=== PATIENT | male | born 1990 | race Caucasian/White ===

== ENCOUNTER 2017-02-25 20:32 | Observation (INO) | payer MEDICAID ==
[2017-02-25] MEDS ORDERED: Sodium Chloride 0.9% 2.5 ML Syringe FLUSH PRN ×2 (20:49→23:23)
[2017-02-25] MEDS ORDERED: Pantoprazole 40 MG Vial IVPUSH ONE (20:49)
[2017-02-25] MEDS ORDERED: HYDROmorphone 2 MG/ML Syringe IVPUSH ONE ×2 (20:49→22:49)
[2017-02-25] MEDS ORDERED: Sodium Chloride 0.9% 1,000 ML IV ONE ×2 (20:49→21:26)
[2017-02-25] MEDS ORDERED: Ondansetron 4 MG/2 ML SDV IVPUSH ONE (20:49)
[2017-02-25] MEDS ORDERED: Sodium Chloride 0.9% 10 ML Syringe FLUSH PRN ×2 (20:49→23:23)
--- NOTE | 2017-02-25 20:55 | EDM.PDOC ---
ED HPI GENERAL MEDICAL PROBLEM - General Chief Complaint: Abdominal Pain Stated Complaint: ABDOMINAL PAIN Time Seen by Provider: 02/25/17 20:41 - History of Present Illness INITIAL COMMENTS - FREE TEXT/NARRATIVE: HISTORY AND PHYSICAL: History of present illness: The patient is a 26-year-old male who denies any chronic medical problems but states that he was told that he had "IBS" by a physician but has never had endoscopy or colonoscopy and presents with complaints of mid epigastric abdominal pain that started at 1 PM this afternoon and has gradually increased. Initially it was a dull ache and it has increased in intensity over the last few hours it has worsened to the point where he is finding difficulty sitting still or standing upright. He has had nausea with this pain and he made himself vomit once but he has not vomited spontaneously. He had a normal bowel movement for him earlier today, 3 times without black or bloody stools, which is normal for him. The patient does state that when he eats certain foods he will get multiple episodes of loose stools but that is not new or different for him. He did not eat anything new or different this afternoon. He has not had fevers chest pain shortness of breath like pain and no urinary complaints. Patient denies any recent trauma or upper respiratory symptoms. Patient has no abdominal surgical history and again he has never been formally diagnosed with an IBS syndrome and has never been scoped before. The patient does admit that he drinks alcohol on a daily basis but does not binge drink and did not have any alcohol today. 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 He has no history of ulcers pancreas or liver issues that he is aware of. Patient denies drug use. He did not take anything over-the- counter for the discomfort other than some Advil. Patient also tells me that he does drink a lot of caffeinated products and he does not eat a very healthy diet due to his work schedule. Review of systems: As per history of present illness and below otherwise all systems reviewed and negative. Past medical history: As per history of present illness and as reviewed below otherwise noncontributory. Surgical history: As per history of present illness and as reviewed below otherwise noncontributory. Social history: No reported history of drug or alcohol abuse. Family history: As per history of present illness and as reviewed below otherwise noncontributory. Physical exam: Gen.: Well-developed well-nourished man who is vital signs are noted by me and looks uncomfortable in the room and prefers to keep his hips and knees flexed for comfort. He is nontoxic appearing HEENT: Atraumatic, normocephalic, sclerae are noninjected negative for conjunctival pallor or scleral icterus, mucous membranes tacky, throat clear, neck supple, nontender, trachea midline. Lungs: Clear to auscultation, breath sounds equal bilaterally, chest nontender. Heart: S1S2, regular rate and rhythm no overt murmurs Abdomen: Soft, nondistended, with hypoactive bowel sounds. There is mild tenderness on palpation in the epigastrium that does not localize right or left and does not extend beyond the umbilicus inferiorly. There is no lower abdominal tenderness. There is no rebound but there is some voluntary guarding but no involuntary guarding. Negative for masses or hepatosplenomegaly. Negative for costovertebral tenderness. Pelvis: Stable nontender. Genitourinary: Deferred. Rectal: Deferred. Extremities: Atraumatic, negative for cords or calf pain. Neurovascular unremarkable. Neuro: Awake, alert, oriented. Cranial nerves II through XII unremarkable. Cerebellum unremarkable. Motor and sensory unremarkable throughout. Exam nonfocal. Diagnostics: CBC CMP amylase lipase lactic acid INR abdominal x-rays CT of the abdomen and pelvis Therapeutics: IV fluids protonix Zofran Dilaudid cefoxitin 2252: Case was discussed with our surgeon Dr. Farooq as well as results were discussed with the patient. He is aware that he needs surgery and Dr. Farooq is coming in from home to perform the appendectomy. We will give a dose of cefoxitin and we will give him more pain medication after Dr. Farooq comes. Impression: Epigastric abdominal pain, acute appendicitis Definitive disposition and diagnosis as appropriate pending reevaluation and review of above. abdominal area Pain Score (Numeric/FACES): 10 - Related Data Allergies Allergy/AdvReac Type Severity Reaction Status Date / Time No Known Allergies Allergy Verified 02/25/17 20:46 Home Meds: Home Meds . [No Known Home Meds] 02/25/17 [History] ED ROS GENERAL - Review of Systems Review Of Systems: ROS reveals no pertinent complaints other than HPI. ED EXAM, GENERAL - Physical Exam Exam: See Below (See dictation) Course - Vital Signs Last Recorded V/S: Last Vital Signs Temp 36.6 C 02/25/17 21:18 Pulse 114 H 02/25/17 21:18 Resp 18 02/25/17 21:18 BP 167/91 H 02/25/17 21:18 Pulse Ox 96 02/25/17 21:18 - Orders/Labs/Meds Orders: Active Orders 24 hr Category Date Time Status Abdomen 2V AP Flat Upright [CR] Stat Exams 02/25/17 20:49 Taken Abdomen Pelvis w Cont [CT] Stat Exams 02/25/17 20:49 Taken Sodium Chloride 0.9% @ 150 MLS/HR (1,000ml) Med 02/25/17 23:00 Ordered Sodium Chloride 0.9% [Normal Saline] 1,000 ml IV ASDIRECTED Sodium Chloride 0.9% [Saline Flush] Med 02/25/17 20:49 Active 10 ml FLUSH ASDIRECTED PRN Sodium Chloride 0.9% [Saline Flush] Med 02/25/17 20:49 Active 2.5 ml FLUSH ASDIRECTED PRN cefOXitin [Mefoxin in Dextrose,Iso-Osm 2 GM/50 ML] 2 gm Med 02/25/17 22:50 Ordered Premix Bag 1 bag IV ONETIME Saline Lock Insert [OM.PC] Stat Oth 02/25/17 20:48 Ordered Medication Orders Sodium Chloride (Normal Saline) 1,000 mls @ 150 mls/hr IV ASDIRECTED OCTAVIO Sodium Chloride (Saline Flush) 10 ml FLUSH ASDIRECTED PRN PRN Reason: Keep Vein Open Sodium Chloride (Saline Flush) 2.5 ml FLUSH ASDIRECTED PRN PRN Reason: Keep Vein Open Labs: Laboratory Tests 02/25/17 02/25/17 02/25/17 Range/Units 20:50 20:55 20:55 WBC 21.58 H (4.0-11.0) K/uL RBC 5.22 (4.50-5.90) M/uL Hgb 15.0 (13.0-17.0) g/dL Hct 44.2 (38.0-50.0) % MCV 84.7 (80.0-98.0) fL MCH 28.7 (27.0-32.0) pg MCHC 33.9 (31.0-37.0) g/dL RDW Std Deviation 41.7 (28.0-62.0) fl RDW Coeff of Austyn 14 (11.0-15.0) % Plt Count 174 (150-400) K/uL MPV 10.40 (7.40-12.00) fL Add Manual Diff YES Neutrophils % (Manual) 87 H (48.0-80.0) % Band Neutrophils % 2 % Lymphocytes % (Manual) 6 L (16.0-40.0) % Monocytes % (Manual) 5 (0.0-15.0) % Nucleated RBC % 0.0 /100WBC Absolute Seg Neuts 18.8 Band Neutrophils # 0.4 Lymphocytes # (Manual) 1.3 Monocytes # (Manual) 1.1 Nucleated RBCs # 0 K/uL INR 0.98 (0.86-1.11) Lactate (0.20-2.00) mmol/L Sodium (136-146) mmol/L Potassium (3.5-5.1) mmol/L Chloride (98-110) mmol/L Carbon Dioxide (21-31) mmol/L BUN (6.0-23.0) mg/dL Creatinine (0.6-1.5) mg/dL Est Cr Clr Drug Dosing mL/min Estimated GFR (MDRD) ml/min Glucose (60-110) mg/dL Calcium (8.8-10.8) mg/dL Total Bilirubin (0.1-1.5) mg/dL AST (5-40) IU/L ALT (8-54) IU/L Alkaline Phosphatase (40-150) Total Protein (6.0-8.0) g/dL Albumin (3.5-5.0) g/dL Globulin (2.0-3.5) g/dL Albumin/Globulin Ratio (1.3-2.8) Amylase (10-90) U/L Lipase (7-80) U/L Urine Color YELLOW Urine Appearance CLEAR Urine pH 6.5 (5.0-8.0) Ur Specific [place] >= 1.030 (1.001-1.035) Urine Protein 100 (NEGATIVE) mg/dL Urine Glucose (UA) NEGATIVE (NEGATIVE) mg/dL Urine Ketones NEGATIVE (NEGATIVE) mg/dL Urine Occult Blood NEGATIVE (NEGATIVE) Urine Nitrite NEGATIVE (NEGATIVE) Urine Bilirubin NEGATIVE (NEGATIVE) Urine Urobilinogen 0.2 (<2.0) EU/dL Ur Leukocyte Esterase NEGATIVE (NEGATIVE) Urine RBC 0-1 (0-2/HPF) Urine WBC 0-2 (0-5/HPF) Ur Epithelial Cells RARE (NONE-FEW) Urine Bacteria RARE (NEGATIVE) Urine Mucus LIGHT (NONE-MOD) 02/25/17 02/25/17 Range/Units 20:55 20:55 WBC (4.0-11.0) K/uL RBC (4.50-5.90) M/uL Hgb (13.0-17.0) g/dL Hct (38.0-50.0) % MCV (80.0-98.0) fL MCH (27.0-32.0) pg MCHC (31.0-37.0) g/dL RDW Std Deviation (28.0-62.0) fl RDW Coeff of Austyn (11.0-15.0) % Plt Count (150-400) K/uL MPV (7.40-12.00) fL Add Manual Diff Neutrophils % (Manual) (48.0-80.0) % Band Neutrophils % % Lymphocytes % (Manual) (16.0-40.0) % Monocytes % (Manual) (0.0-15.0) % Nucleated RBC % /100WBC Absolute Seg Neuts Band Neutrophils # Lymphocytes # (Manual) Monocytes # (Manual) Nucleated RBCs # K/uL INR (0.86-1.11) Lactate 1.9 (0.20-2.00) mmol/L Sodium 141 (136-146) mmol/L Potassium 4.0 (3.5-5.1) mmol/L Chloride 102 (98-110) mmol/L Carbon Dioxide 26 (21-31) mmol/L BUN 14 (6.0-23.0) mg/dL Creatinine 0.9 (0.6-1.5) mg/dL Est Cr Clr Drug Dosing 151.36 mL/min Estimated GFR (MDRD) > 60.0 ml/min Glucose 111 H (60-110) mg/dL Calcium 9.8 (8.8-10.8) mg/dL Total Bilirubin 1.8 H (0.1-1.5) mg/dL AST 25 (5-40) IU/L ALT 28 (8-54) IU/L Alkaline Phosphatase 77 (40-150) Total Protein 8.3 H (6.0-8.0) g/dL Albumin 4.7 (3.5-5.0) g/dL Globulin 3.6 H (2.0-3.5) g/dL Albumin/Globulin Ratio 1.3 (1.3-2.8) Amylase 36 (10-90) U/L Lipase 11 (7-80) U/L Urine Color Urine Appearance Urine pH (5.0-8.0) Ur Specific [place] (1.001-1.035) Urine Protein (NEGATIVE) mg/dL Urine Glucose (UA) (NEGATIVE) mg/dL Urine Ketones (NEGATIVE) mg/dL Urine Occult Blood (NEGATIVE) Urine Nitrite (NEGATIVE) Urine Bilirubin (NEGATIVE) Urine Urobilinogen (<2.0) EU/dL Ur Leukocyte Esterase (NEGATIVE) Urine RBC (0-2/HPF) Urine WBC (0-5/HPF) Ur Epithelial Cells (NONE-FEW) Urine Bacteria (NEGATIVE) Urine Mucus (NONE-MOD) Meds: Medications Generic Name Dose Route Start Last Admin Trade Name Freq PRN Reason Stop Dose Admin Sodium Chloride 1,000 mls @ 150 mls/hr 02/25/17 23:00 Normal Saline IV ASDIRECTED OCTAVIO Sodium Chloride 10 ml 02/25/17 20:49 Saline Flush FLUSH ASDIRECTED PRN Keep Vein Open Sodium Chloride 2.5 ml 02/25/17 20:49 Saline Flush FLUSH ASDIRECTED PRN Keep Vein Open Discontinued Medications Generic Name Dose Route Start Last Admin Trade Name Freq PRN Reason Stop Dose Admin Hydromorphone HCl 1 mg 02/25/17 20:49 02/25/17 21:05 Dilaudid IVPUSH 02/25/17 20:50 1 mg ONETIME ONE Administration Hydromorphone HCl 1 mg 02/25/17 22:49 Dilaudid IVPUSH 02/25/17 22:50 ONETIME ONE Sodium Chloride 1,000 mls @ 999 mls/hr 02/25/17 20:49 02/25/17 20:58 Normal Saline IV 02/25/17 21:49 999 mls/hr STAT ONE Administration Sodium Chloride 1,000 mls @ 999 mls/hr 02/25/17 21:26 Normal Saline IV 02/25/17 22:26 STAT ONE Iopamidol 100 ml 02/25/17 22:29 02/25/17 22:30 Isovue Multipack-370 (76%) IVPUSH 02/25/17 22:30 100 ml ONETIME STA Administration Ondansetron HCl 4 mg 02/25/17 20:49 02/25/17 21:00 Zofran IVPUSH 02/25/17 20:50 4 mg ONETIME ONE Administration Pantoprazole Sodium 80 mg 02/25/17 20:49 02/25/17 21:10 Protonix Iv IVPUSH 02/25/17 20:50 80 mg .BOLUS ONE Administration Departure - Departure Time of Disposition: 22:54 Disposition: Refer to Observation Condition: Good Clinical Impression: Appendicitis Qualifiers: Appendicitis type: acute appendicitis Acute appendicitis type: unspecified acute appendicitis type Qualified Code(s): K35.80 - Unspecified acute appendicitis - Discharge Information Forms: ED Department Discharge - My Orders Last 24 Hours: My Active Orders 02/25/17 20:48 Saline Lock Insert [OM.PC] Stat 02/25/17 20:49 Abdomen 2V AP Flat Upright [CR] Stat Abdomen Pelvis w Cont [CT] Stat Sodium Chloride 0.9% [Saline Flush] 10 ml FLUSH ASDIRECTED PRN Sodium Chloride 0.9% [Saline Flush] 2.5 ml FLUSH ASDIRECTED PRN 02/25/17 22:50 cefOXitin [Mefoxin in Dextrose,Iso-Osm 2 GM/50 ML] 2 gm Premix Bag 1 bag IV ONETIME 02/25/17 23:00 Sodium Chloride 0.9% @ 150 MLS/HR (1,000ml) Sodium Chloride 0.9% [Normal Saline ] 1,000 ml IV ASDIRECTED - Assessment/Plan Last 24 Hours: My Active Orders 02/25/17 20:48 Saline Lock Insert [OM.PC] Stat 02/25/17 20:49 Abdomen 2V AP Flat Upright [CR] Stat Abdomen Pelvis w Cont [CT] Stat Sodium Chloride 0.9% [Saline Flush] 10 ml FLUSH ASDIRECTED PRN Sodium Chloride 0.9% [Saline Flush] 2.5 ml FLUSH ASDIRECTED PRN 02/25/17 22:50 cefOXitin [Mefoxin in Dextrose,Iso-Osm 2 GM/50 ML] 2 gm Premix Bag 1 bag IV ONETIME 02/25/17 23:00 Sodium Chloride 0.9% @ 150 MLS/HR (1,000ml) Sodium Chloride 0.9% [Normal Saline ] 1,000 ml IV ASDIRECTED
[2017-02-25 21:31] LABS: CHLORIDE,CL 102 mmol/L (98-110); SODIUM,NA 141 mmol/L (136-146)
[2017-02-25] MEDS ORDERED: Iopamidol 755 MG/ML 500 ML Multipack Bottle IVPUSH STA (22:29)
[2017-02-25] MEDS ORDERED: cefOXitin 2 GM in Premix Bag 1 BAG IV ONE (22:50)
[2017-02-25] MEDS ORDERED: Sodium Chloride 0.9% 1,000 ML IV SCH (23:00)
[2017-02-25] MEDS ORDERED: fentaNYL 100 MCG/2 ML SDV IVPUSH PRN (23:23)
--- NOTE | 2017-02-25 23:24 | PCM.HP ---
H&P History of Present Illness - General Date of Service: 02/25/17 Admit Problem/Dx: Admission Diagnosis/Problem Admission Diagnosis/Problem Appendicitis Source of Information: Patient History Limitations: Reports: No Limitations - History of Present Illness Initial Comments - Free Text/Narative: Patient is a 26-year-old gentleman who noticed the onset of epigastric pain about noon. He was able to eat. Denies any nausea or vomiting. Appetite is not particularly good right now. He finished work but the pain became progressively more intense until he presented to the emergency room where he was evaluated by Dr. Menon. Workup is as noted by her. He was found to have a significant leukocytosis. A subsequent CT scan of the abdomen reveals acute appendicitis without perforation. Surgical consultation was requested. Onset of Symptoms: Reports: Today Duration of Symptoms: Reports: Hour(s):, Getting Worse Location: Reports: Abdomen Quality: Reports: Pressure, Sharp Severity: Moderate Improves with: Reports: Rest Worsens with: Reports: Movement Context: Reports: Sick Contact Associated Symptoms: Reports: Loss of Appetite. Denies: Confusion, Chest Pain, Cough, Nausea/Vomiting abdominal area Pain Score (Numeric/FACES): 10 - Related Data Allergies/Adverse Reactions: Allergies Allergy/AdvReac Type Severity Reaction Status Date / Time No Known Allergies Allergy Verified 02/25/17 20:46 Home Medications: Home Meds . [No Known Home Meds] 02/25/17 [History] Past Medical History HEENT History: Reports: None Cardiovascular History: Reports: None Respiratory History: Reports: None Gastrointestinal History: Reports: None, Irritable Bowel Syndrome Genitourinary History: Reports: None Musculoskeletal History: Reports: None, Other (See Below) (Avascular necrosis of the left hip) Neurological History: Reports: None Psychiatric History: Reports: None Endocrine/Metabolic History: Reports: None Hematologic History: Reports: None Immunologic History: Reports: None Oncologic (Cancer) History: Reports: None Dermatologic History: Reports: None - Infectious Disease History Infectious Disease History: Reports: None - Past Surgical History Musculoskeletal Surgical History: Reports: Other (See Below) Other Musculoskeletal Surgeries/Procedures:: 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 Social & Family History - Family History Family Medical History: Noncontributory - Tobacco Use Smoking Status *Q: Never Smoker - Caffeine Use Caffeine Use: Reports: Coffee, Energy Drinks, Soda, Tea - Recreational Drug Use Recreational Drug Use: No H&P Review of Systems - Review of Systems: Review Of Systems: See Below General: Reports: Decreased Appetite. Denies: Fever, Chills, Malaise, Weakness , Night Sweats, Diaphoresis HEENT: Reports: No Symptoms Pulmonary: Reports: No Symptoms Cardiovascular: Reports: No Symptoms Gastrointestinal: Reports: Abdominal Pain, Anorexia, Decreased Appetite. Denies : Nausea, Vomiting Genitourinary: Denies: Dysuria, Frequency, Burning, Pain, Urgency Musculoskeletal: Reports: No Symptoms Skin: Reports: No Symptoms Psychiatric: Reports: No Symptoms Neurological: Reports: No Symptoms Hematologic/Lymphatic: Reports: No Symptoms Immunologic: Reports: No Symptoms Exam - Exam Exam: See Below - Vital Signs Vital Signs: Last Vital Signs Temp 98 F 02/25/17 22:54 Pulse 101 H 02/25/17 22:54 Resp 18 02/25/17 22:54 BP 156/79 H 02/25/17 22:54 Pulse Ox 97 02/25/17 22:54 Weight: 240 lb - Exam General: Alert, Oriented, Moderate Distress HEENT: Conjunctiva Clear, EACs Clear, EOMI, Hearing Intact, Mucosa Moist & [place] , Pupils Equal, Pupils Reactive Neck: Supple, Trachea Midline Lungs: Clear to Auscultation, Normal Respiratory Effort Cardiovascular: Regular Rate, Regular Rhythm, Normal S1, Normal S2, Tachycardia Abdomen: Soft, Rebound, Tenderness, Hypoactive Bowel Sounds, McBurney's Sign. No: Distention, Guarding, Rigidity, Rovsing's Sign (Male) Exam: No Hernia, Normal Inspection, Deferred Rectal (Males) Exam: Deferred Back Exam: Normal Inspection Extremities: Normal Inspection, Normal Pulses Skin: Warm, Dry, Intact Neurological: Cranial Nerves Intact Neuro Extensive - Mental Status: Alert, Oriented x3, Normal Mood/Affect Psychiatric: Alert, Normal Affect, Normal Mood - Patient Data Lab Results Last 24 hrs: Laboratory Results - last 24 hr 02/25/17 02/25/17 02/25/17 Range/Units 20:50 20:55 20:55 WBC 21.58 H (4.0-11.0) K/uL RBC 5.22 (4.50-5.90) M/uL Hgb 15.0 (13.0-17.0) g/dL Hct 44.2 (38.0-50.0) % MCV 84.7 (80.0-98.0) fL MCH 28.7 (27.0-32.0) pg MCHC 33.9 (31.0-37.0) g/dL RDW Std Deviation 41.7 (28.0-62.0) fl RDW Coeff of Austyn 14 (11.0-15.0) % Plt Count 174 (150-400) K/uL MPV 10.40 (7.40-12.00) fL Add Manual Diff YES Neutrophils % (Manual) 87 H (48.0-80.0) % Band Neutrophils % 2 % Lymphocytes % (Manual) 6 L (16.0-40.0) % Monocytes % (Manual) 5 (0.0-15.0) % Nucleated RBC % 0.0 /100WBC Absolute Seg Neuts 18.8 Band Neutrophils # 0.4 Lymphocytes # (Manual) 1.3 Monocytes # (Manual) 1.1 Nucleated RBCs # 0 K/uL INR 0.98 (0.86-1.11) Lactate (0.20-2.00) mmol/L Sodium (136-146) mmol/L Potassium (3.5-5.1) mmol/L Chloride (98-110) mmol/L Carbon Dioxide (21-31) mmol/L BUN (6.0-23.0) mg/dL Creatinine (0.6-1.5) mg/dL Est Cr Clr Drug Dosing mL/min Estimated GFR (MDRD) ml/min Glucose (60-110) mg/dL Calcium (8.8-10.8) mg/dL Total Bilirubin (0.1-1.5) mg/dL AST (5-40) IU/L ALT (8-54) IU/L Alkaline Phosphatase (40-150) Total Protein (6.0-8.0) g/dL Albumin (3.5-5.0) g/dL Globulin (2.0-3.5) g/dL Albumin/Globulin Ratio (1.3-2.8) Amylase (10-90) U/L Lipase (7-80) U/L Urine Color YELLOW Urine Appearance CLEAR Urine pH 6.5 (5.0-8.0) Ur Specific [place] >= 1.030 (1.001-1.035) Urine Protein 100 (NEGATIVE) mg/dL Urine Glucose (UA) NEGATIVE (NEGATIVE) mg/dL Urine Ketones NEGATIVE (NEGATIVE) mg/dL Urine Occult Blood NEGATIVE (NEGATIVE) Urine Nitrite NEGATIVE (NEGATIVE) Urine Bilirubin NEGATIVE (NEGATIVE) Urine Urobilinogen 0.2 (<2.0) EU/dL Ur Leukocyte Esterase NEGATIVE (NEGATIVE) Urine RBC 0-1 (0-2/HPF) Urine WBC 0-2 (0-5/HPF) Ur Epithelial Cells RARE (NONE-FEW) Urine Bacteria RARE (NEGATIVE) Urine Mucus LIGHT (NONE-MOD) 02/25/17 02/25/17 Range/Units 20:55 20:55 WBC (4.0-11.0) K/uL RBC (4.50-5.90) M/uL Hgb (13.0-17.0) g/dL Hct (38.0-50.0) % MCV (80.0-98.0) fL MCH (27.0-32.0) pg MCHC (31.0-37.0) g/dL RDW Std Deviation (28.0-62.0) fl RDW Coeff of Austyn (11.0-15.0) % Plt Count (150-400) K/uL MPV (7.40-12.00) fL Add Manual Diff Neutrophils % (Manual) (48.0-80.0) % Band Neutrophils % % Lymphocytes % (Manual) (16.0-40.0) % Monocytes % (Manual) (0.0-15.0) % Nucleated RBC % /100WBC Absolute Seg Neuts Band Neutrophils # Lymphocytes # (Manual) Monocytes # (Manual) Nucleated RBCs # K/uL INR (0.86-1.11) Lactate 1.9 (0.20-2.00) mmol/L Sodium 141 (136-146) mmol/L Potassium 4.0 (3.5-5.1) mmol/L Chloride 102 (98-110) mmol/L Carbon Dioxide 26 (21-31) mmol/L BUN 14 (6.0-23.0) mg/dL Creatinine 0.9 (0.6-1.5) mg/dL Est Cr Clr Drug Dosing 151.36 mL/min Estimated GFR (MDRD) > 60.0 ml/min Glucose 111 H (60-110) mg/dL Calcium 9.8 (8.8-10.8) mg/dL Total Bilirubin 1.8 H (0.1-1.5) mg/dL AST 25 (5-40) IU/L ALT 28 (8-54) IU/L Alkaline Phosphatase 77 (40-150) Total Protein 8.3 H (6.0-8.0) g/dL Albumin 4.7 (3.5-5.0) g/dL Globulin 3.6 H (2.0-3.5) g/dL Albumin/Globulin Ratio 1.3 (1.3-2.8) Amylase 36 (10-90) U/L Lipase 11 (7-80) U/L Urine Color Urine Appearance Urine pH (5.0-8.0) Ur Specific [place] (1.001-1.035) Urine Protein (NEGATIVE) mg/dL Urine Glucose (UA) (NEGATIVE) mg/dL Urine Ketones (NEGATIVE) mg/dL Urine Occult Blood (NEGATIVE) Urine Nitrite (NEGATIVE) Urine Bilirubin (NEGATIVE) Urine Urobilinogen (<2.0) EU/dL Ur Leukocyte Esterase (NEGATIVE) Urine RBC (0-2/HPF) Urine WBC (0-5/HPF) Ur Epithelial Cells (NONE-FEW) Urine Bacteria (NEGATIVE) Urine Mucus (NONE-MOD) Result Diagrams: 02/25/17 20:55 02/25/17 20:55 Imaging Impressions Last 24 hrs: CT scan of the abdomen has been done. The radiology report shows "dilated fluid -filled appendix measuring up to 14 mm circumferential wall enhancement and thickening and periappendiceal stranding. Appendicolith near the base of the appendix. No evidence of perforation or abscess formation." *Q Meaningful Use (ADM) - VTE *Q VTE Criteria *Q: - Stroke *Q Stroke Criteria *Q: - AMI *Q AMI Criteria *Q: - Problem List (1) Appendicitis SNOMED Code(s): 14696785 ICD Code: K37 - UNSPECIFIED APPENDICITIS Status: Acute Current Visit: Yes Qualifiers: Appendicitis type: acute appendicitis Acute appendicitis type: with localized peritonitis Qualified Code(s): K35.3 - Acute appendicitis with localized peritonitis Problem List Initiated/Reviewed/Updated: Yes Orders Last 24hrs: Active Orders 24 hr Category Date Time Status Patient Status [ADT] Stat ADT 02/25/17 22:54 Active Antiembolic Devices [RC] PER UNIT ROUTINE Care 02/25/17 23:17 Ordered Aragon Catheter Insertion [Insert Urinary Catheter] [OM. Care 02/25/17 23:30 Ordered PC] Q24H Oxygen Therapy [RC] PRN Care 02/25/17 23:16 Ordered Pulse Oximetry [RC] INTERMITTENT Care 02/25/17 23:16 Ordered Skin Preparation [RC] .PREOP Care 02/25/17 23:16 Ordered Urinary Catheter Assessment [RC] ASDIRECTED Care 02/25/17 23:16 Ordered Urinary Catheter Assessment [RC] ASDIRECTED Care 02/25/17 23:17 Ordered Vital Signs [RC] PER UNIT ROUTINE Care 02/25/17 23:16 Ordered Nothing Per Oral Diet [DIET] Diet 02/25/17 Dinner Ordered Abdomen 2V AP Flat Upright [CR] Stat Exams 02/25/17 20:49 Taken Abdomen Pelvis w Cont [CT] Stat Exams 02/25/17 20:49 Taken Lactated Ringers [Ringers, Lactated] 1,000 ml Med 02/25/17 23:30 Ordered IV ASDIRECTED Sodium Chloride 0.9% [Normal Saline] 1,000 ml Med 02/25/17 23:00 Active IV ASDIRECTED Sodium Chloride 0.9% [Saline Flush] Med 02/25/17 20:49 Active 10 ml FLUSH ASDIRECTED PRN Sodium Chloride 0.9% [Saline Flush] Med 02/25/17 20:49 Active 2.5 ml FLUSH ASDIRECTED PRN cefOXitin [Mefoxin in Dextrose,Iso-Osm 2 GM/50 ML] 2 gm Med 02/25/17 22:50 Active Premix Bag 1 bag IV ONETIME Antiembolic Hose [OM.PC] PER UNIT ROUTINE Oth 02/25/17 06:00 Ordered Antiembolic Hose [OM.PC] PER UNIT ROUTINE Oth 02/26/17 06:00 Ordered Saline Lock Insert [OM.PC] Stat Oth 02/25/17 20:48 Ordered Sequential Compression Device [OM.PC] Routine Oth 02/25/17 23:16 Ordered Resuscitation Status Routine Resus Stat 02/25/17 23:16 Ordered Medication Orders Sodium Chloride (Normal Saline) 1,000 mls @ 150 mls/hr IV ASDIRECTED OCTAVIO Last Admin: 02/25/17 23:05 Dose: 150 mls/hr Cefoxitin Sodium 2 gm/ Premix 50 mls @ 100 mls/hr IV ONETIME ONE Stop: 02/25/17 23:19 Last Admin: 02/25/17 23:07 Dose: 100 mls/hr Sodium Chloride (Saline Flush) 10 ml FLUSH ASDIRECTED PRN PRN Reason: Keep Vein Open Sodium Chloride (Saline Flush) 2.5 ml FLUSH ASDIRECTED PRN PRN Reason: Keep Vein Open Assessment/Plan Comment:: White count is almost 22,000 with a marked left shift. Examination is consistent with a diagnosis of acute appendicitis as referenced by CT scan. Laparoscopic appendectomy, possible open appendectomy. Both operative procedures, along with the risks, including, but not limited to, bleeding, infection, pneumonia, deep venous thrombosis, pulmonary emboli, myocardial infarction, and adjacent organ injury have been reviewed with the patient who voices understanding, offers no questions and agrees to proceed.
--- NOTE | 2017-02-25 23:28 | PCM.PREANE ---
Preanesthetic Assessment - Anesthesia/Transfusion/Family Hx Anesthesia History: No Prior Anesthesia - Review of Systems General: No Symptoms Pulmonary: No Symptoms Cardiovascular: No Symptoms Gastrointestinal: No symptoms Neurological: No Symptoms Other: Reports: None - Physical Assessment NPO Status Date: 02/25/17 NPO Status Time: 21:00 O2 Sat by Pulse Oximetry: 97 Respiratory Rate: 18 Vital Signs: Last Vital Signs Temp 98 F 02/25/17 22:54 Pulse 101 H 02/25/17 22:54 Resp 18 02/25/17 22:54 BP 156/79 H 02/25/17 22:54 Pulse Ox 97 02/25/17 22:54 Height: 6 ft 4 in Weight: 108.862 kg ASA Class: 2E Mental Status: Alert & Oriented x3 Airway Class: Mallampati = 2 Dentition: Reports: Normal Dentition Thyro-Mental Finger Breadths: 3 Mouth Opening Finger Breadths: 3 ROM/Head Extension: Full Lungs: Clear to auscultation, Normal respiratory effort Cardiovascular: Regular Rate, Regular Rhythm - Lab Values: Laboratory Last Values WBC 21.58 K/uL (4.0-11.0) H 02/25/17 20:55 RBC 5.22 M/uL (4.50-5.90) 02/25/17 20:55 Hgb 15.0 g/dL (13.0-17.0) 02/25/17 20:55 Hct 44.2 % (38.0-50.0) 02/25/17 20:55 MCV 84.7 fL (80.0-98.0) 02/25/17 20:55 MCH 28.7 pg (27.0-32.0) 02/25/17 20:55 MCHC 33.9 g/dL (31.0-37.0) 02/25/17 20:55 RDW Std Deviation 41.7 fl (28.0-62.0) 02/25/17 20:55 RDW Coeff of Austyn 14 % (11.0-15.0) 02/25/17 20:55 Plt Count 174 K/uL (150-400) 02/25/17 20:55 MPV 10.40 fL (7.40-12.00) 02/25/17 20:55 Add Manual Diff YES 02/25/17 20:55 Neutrophils % (Manual) 87 % (48.0-80.0) H 02/25/17 20:55 Band Neutrophils % 2 % 02/25/17 20:55 Lymphocytes % (Manual) 6 % (16.0-40.0) L 02/25/17 20:55 Monocytes % (Manual) 5 % (0.0-15.0) 02/25/17 20:55 Nucleated RBC % 0.0 /100WBC 02/25/17 20:55 Absolute Seg Neuts 18.8 02/25/17 20:55 Band Neutrophils # 0.4 02/25/17 20:55 Lymphocytes # (Manual) 1.3 02/25/17 20:55 Monocytes # (Manual) 1.1 02/25/17 20:55 Nucleated RBCs # 0 K/uL 02/25/17 20:55 INR 0.98 (0.86-1.11) 02/25/17 20:55 Lactate 1.9 mmol/L (0.20-2.00) 02/25/17 20:55 Sodium 141 mmol/L (136-146) 02/25/17 20:55 Potassium 4.0 mmol/L (3.5-5.1) 02/25/17 20:55 Chloride 102 mmol/L (98-110) 02/25/17 20:55 Carbon Dioxide 26 mmol/L (21-31) 02/25/17 20:55 BUN 14 mg/dL (6.0-23.0) 02/25/17 20:55 Creatinine 0.9 mg/dL (0.6-1.5) 02/25/17 20:55 Est Cr Clr Drug Dosing 151.36 mL/min 02/25/17 20:55 Estimated GFR (MDRD) > 60.0 ml/min 02/25/17 20:55 Glucose 111 mg/dL (60-110) H 02/25/17 20:55 Calcium 9.8 mg/dL (8.8-10.8) 02/25/17 20:55 Total Bilirubin 1.8 mg/dL (0.1-1.5) H 02/25/17 20:55 AST 25 IU/L (5-40) 02/25/17 20:55 ALT 28 IU/L (8-54) 02/25/17 20:55 Alkaline Phosphatase 77 (40-150) 02/25/17 20:55 Total Protein 8.3 g/dL (6.0-8.0) H 02/25/17 20:55 Albumin 4.7 g/dL (3.5-5.0) 02/25/17 20:55 Globulin 3.6 g/dL (2.0-3.5) H 02/25/17 20:55 Albumin/Globulin Ratio 1.3 (1.3-2.8) 02/25/17 20:55 Amylase 36 U/L (10-90) 02/25/17 20:55 Lipase 11 U/L (7-80) 02/25/17 20:55 Urine Color YELLOW 02/25/17 20:50 Urine Appearance CLEAR 02/25/17 20:50 Urine pH 6.5 (5.0-8.0) 02/25/17 20:50 Ur Specific Umpire >= 1.030 (1.001-1.035) 02/25/17 20:50 Urine Protein 100 mg/dL (NEGATIVE) 02/25/17 20:50 Urine Glucose (UA) NEGATIVE mg/dL (NEGATIVE) 02/25/17 20:50 Urine Ketones NEGATIVE mg/dL (NEGATIVE) 02/25/17 20:50 Urine Occult Blood NEGATIVE (NEGATIVE) 02/25/17 20:50 Urine Nitrite NEGATIVE (NEGATIVE) 02/25/17 20:50 Urine Bilirubin NEGATIVE (NEGATIVE) 02/25/17 20:50 Urine Urobilinogen 0.2 EU/dL (<2.0) 02/25/17 20:50 Ur Leukocyte Esterase NEGATIVE (NEGATIVE) 02/25/17 20:50 Urine RBC 0-1 (0-2/HPF) 02/25/17 20:50 Urine WBC 0-2 (0-5/HPF) 02/25/17 20:50 Ur Epithelial Cells RARE (NONE-FEW) 02/25/17 20:50 Urine Bacteria RARE (NEGATIVE) 02/25/17 20:50 Urine Mucus LIGHT (NONE-MOD) 02/25/17 20:50 - Allergies Allergies/Adverse Reactions: Allergies Allergy/AdvReac Type Severity Reaction Status Date / Time No Known Allergies Allergy Verified 02/25/17 20:46 - Acknowledgements Anesthesia Type Planned: General Anesthesia Pt an Appropriate Candidate for the Planned Anesthesia: Yes Alternatives and Risks of Anesthesia Discussed w Pt/Guardian: Yes Pt/Guardian Understands and Agrees with Anesthesia Plan: Yes PreAnesthesia Questionnaire HEENT History: Reports: None Cardiovascular History: Reports: None Respiratory History: Reports: None Gastrointestinal History: Reports: Irritable Bowel Syndrome Genitourinary History: Reports: None Musculoskeletal History: Reports: Other (See Below) (Avascular necrosis of the left hip) Neurological History: Reports: None Psychiatric History: Reports: None Endocrine/Metabolic History: Reports: None Hematologic History: Reports: None Immunologic History: Reports: None Oncologic (Cancer) History: Reports: None Dermatologic History: Reports: None - Infectious Disease History Infectious Disease History: Reports: None - Past Surgical History Musculoskeletal Surgical History: Reports: Other (See Below) Other Musculoskeletal Surgeries/Procedures:: 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 - SUBSTANCE USE Smoking Status *Q: Never Smoker Recreational Drug Use History: Yes Recreational Drug Last Use: 1 year ago per patient - HOME MEDS Home Medications: Home Meds . [No Known Home Meds] 02/25/17 [History] - CURRENT (IN HOUSE) MEDS Current Meds: Current Medications Sodium Chloride (Normal Saline) 1,000 mls @ 150 mls/hr IV ASDIRECTED OCTAVIO Last Admin: 02/25/17 23:05 Dose: 150 mls/hr Lactated Ringer's (Ringers, Lactated) 1,000 mls @ 150 mls/hr IV ASDIRECTED OCTAVIO Sodium Chloride (Saline Flush) 10 ml FLUSH ASDIRECTED PRN PRN Reason: Keep Vein Open Sodium Chloride (Saline Flush) 2.5 ml FLUSH ASDIRECTED PRN PRN Reason: Keep Vein Open Discontinued Medications Hydromorphone HCl (Dilaudid) 1 mg IVPUSH ONETIME ONE Stop: 02/25/17 20:50 Last Admin: 02/25/17 21:05 Dose: 1 mg Hydromorphone HCl (Dilaudid) 1 mg IVPUSH ONETIME ONE Stop: 02/25/17 22:50 Last Admin: 02/25/17 23:14 Dose: 1 mg Sodium Chloride (Normal Saline) 1,000 mls @ 999 mls/hr IV STAT ONE Stop: 02/25/17 21:49 Last Admin: 02/25/17 20:58 Dose: 999 mls/hr Sodium Chloride (Normal Saline) 1,000 mls @ 999 mls/hr IV STAT ONE Stop: 02/25/17 22:26 Last Admin: 02/25/17 21:45 Dose: 999 mls/hr Cefoxitin Sodium 2 gm/ Premix 50 mls @ 100 mls/hr IV ONETIME ONE Stop: 02/25/17 23:19 Last Admin: 02/25/17 23:07 Dose: 100 mls/hr Iopamidol (Isovue Multipack-370 (76%)) 100 ml IVPUSH ONETIME STA Stop: 02/25/17 22:30 Last Admin: 02/25/17 22:30 Dose: 100 ml Ondansetron HCl (Zofran) 4 mg IVPUSH ONETIME ONE Stop: 02/25/17 20:50 Last Admin: 02/25/17 21:00 Dose: 4 mg Pantoprazole Sodium (Protonix Iv) 80 mg IVPUSH .BOLUS ONE Stop: 02/25/17 20:50 Last Admin: 02/25/17 21:10 Dose: 80 mg
[2017-02-25] MEDS ORDERED: Lactated Ringers 1,000 ML IV SCH (23:30)
[2017-02-25] MEDS ORDERED: Midazolam 1 MG/ML 2 ML SDV IVPUSH ONE (23:31)
[2017-02-25] MEDS ORDERED: fentaNYL 250 MCG/5 ML SDV ONE (23:50)
[2017-02-25] MEDS ORDERED: Ondansetron 4 MG/2 ML SDV ONE (23:50)
[2017-02-25] MEDS ORDERED: Midazolam 1 MG/ML 2 ML SDV ONE (23:50)
[2017-02-25] MEDS ORDERED: Propofol 200 MG/20 ML SDV ONE (23:50)
[2017-02-25] MEDS ORDERED: Lidocaine 2% 5 ML SDV ONE (23:50)
[2017-02-25] MEDS ORDERED: Succinylcholine/Normal Saline 200 MG/10 ML Syringe ONE (23:50)
[2017-02-25] MEDS ORDERED: Bupivacaine 0.5% 30 ML SDV ONE (23:55)
[2017-02-25] MEDS ORDERED: ceFAZolin 1 GM Vial ONE (23:55)
[2017-02-26] MEDS ORDERED: Labetalol 5 MG/ML 5 ML Syringe ONE (00:23)
[2017-02-26] MEDS ORDERED: ePHEDrine 50 MG/ML SDV ONE (00:37)
[2017-02-26] MEDS ORDERED: Phenylephrine/Normal Saline 100 MCG/ML 10 ML Syringe ONE (00:38)
[2017-02-26] MEDS ORDERED: HYDROmorphone 2 MG/ML Syringe ONE (00:43)
--- NOTE | 2017-02-26 01:39 | PCM.OPNOTE ---
- General Post-Op/Procedure Note Date of Surgery/Procedure: 02/26/17 Operative Procedure(s): Laparoscopic appendectomy Pre Op Diagnosis: Acute abdomen, appendicitis by CT Post-Op Diagnosis: Acute nonruptured retrocecal appendicitis (29861) Anesthesia Technique: General ET Tube (ASA IIE) Primary Surgeon: Anthony Farooq Fluid Replacement, Intraop: 2,500 Output, Urine Amount: 100 EBL in mLs: 10 Condition: Good Free Text/Narrative:: Dictation [id number]
[2017-02-26] MEDS ORDERED: cefOXitin 1 GM in Premix Bag 1 BAG IV SCH ×2 (01:45→06:00)
--- NOTE | 2017-02-26 01:46 | PCM.POSTAN ---
POST ANESTHESIA ASSESSMENT - MENTAL STATUS Mental Status: alert, oriented - RESPIRATORY Respiratory Status: respiratory rate WNL, airway patent, O2 saturation stable - CARDIOVASCULAR CV Status: pulse rate WNL, blood pressure stable - GASTROINTESTINAL GI Status: no symptoms - POST OP HYDRATION Hydration Status: adequate & stable
[2017-02-26] MEDS: Lactated Ringers 1,000 ML IV SCH ×2 (02:10→07:28)
[2017-02-26] MEDS: Acetaminophen/HYDROcodone 325-5 MG Tab PO PRN ×2 (03:21→08:12)
[2017-02-26] MEDS: Morphine 10 MG/ML Syringe IVPUSH PRN ×2 (05:05→07:26)
--- NOTE | 2017-02-26 05:20 | OR ---
SURGEON: Anthony Farooq M.D. DATE OF PROCEDURE: 02/26/2017 OPERATION PERFORMED: Laparoscopic appendectomy. ANESTHESIA: General endotracheal. ASA CLASSIFICATION: IIE. PREOPERATIVE DIAGNOSIS: Right lower quadrant pain, acute appendicitis by CT scan. POSTOPERATIVE DIAGNOSIS: Acute nonruptured retrocecal appendicitis. DESCRIPTION OF PROCEDURE: The patient was taken to the operating room placed on the operating table in the supine position. Time-out was called for appropriate identification of the patient and procedure. Thigh-high TEDs and sequential compression boots were placed. Following satisfactory attainment of general endotracheal anesthesia, Aragon catheter was paced in the patient's urinary bladder. The abdomen was then prepped with DuraPrep solution and sterile drapes were applied. 3-minute wait was accomplished. The skin just above the umbilicus was infiltrated with 0.5% Marcaine solution. The skin incision was made and deepened into the subcutaneous tissue obtaining hemostasis with the use of electrocautery. The Veress needle was introduced into the peritoneal cavity. Saline drop test was positive. Carbon dioxide pneumoperitoneum was established with the relief set at 13 cm of water. Once satisfactory pneumoperitoneum was established, 5-mm camera and port were placed through the supraumbilical incision. Under camera vision, 12-mm suprapubic port was placed infiltrating the skin with 0.5% Marcaine solution. The patient was now positioned with his head down and rolled to the left. Under camera vision, 5-mm left lower quadrant port was placed. Again, the skin was preemptively infiltrated with 0.5% Marcaine solution. With all trocars in place, the cecum was identified and we were able to trace the appendix which was lying in a retrocecal position and well walled off by the omentum. I was able to dissect the appendix out, and then using the Harmonic scalpel, the mesoappendix was taken down. Once the mesoappendix was taken down, the appendix was stapled using an Endo-VEE with a blue load. The appendix was promptly placed in an Endopouch. The right lower quadrant was inspected for hemostasis. No bleeding was noted. The right lower quadrant was then irrigated with several 100 mL of 1% Ancef solution. This fluid was all aspirated. The patient was now returned to a neutral position. The Endopouch containing appendix was removed through the 12-mm suprapubic port removing the port simultaneously. Under camera vision, the 5-mm left lower quadrant port was removed. The carbon dioxide was allowed to escape into the atmosphere and the supraumbilical camera and port were removed. The wounds were inspected for hemostasis and small bleeding sites were electrocoagulated. The suprapubic and supraumbilical incisions were closed in 2 layers approximating the subcutaneous tissue with 3-0 Polysorb and the skin with subcuticular 4-0 Monocryl. The left lower quadrant port was closed with interrupted subcuticular 4-0 Monocryl. All incisions were Steri-Stripped and dressed with sterile Tegaderm pads. Sponge, needle, and instrument counts were all correct. The patient tolerated the procedure well. The Aragon catheter was removed prior to emergence from anesthesia. Following emergence from anesthesia and extubation, the patient was taken to recovery room in satisfactory condition. NADJA CONTRERAS /[id number]
[2017-02-26 07:36] VITALS: BP 148/87
--- NOTE | 2017-02-26 08:20 | PCM.SURGPN ---
- General Info Date of Service: 02/26/17 POD#: 1 Post-Op Diagnosis: Acute nonruptured retrocecal appendicitis Functional Status: Reports: pain controlled, tolerating diet, ambulating, urinating - Review of Systems General: Reports: Appetite. Denies: Fever, Weakness, Malaise, Chills HEENT: Reports: no symptoms Pulmonary: Denies: shortness of breath, pleuritic chest pain, cough Cardiovascular: Reports: No Symptoms Gastrointestinal: Reports: Abdominal pain (Still RLQ but less than preop). Denies: Decreased appetite, Diarrhea, Difficulty swallowing, Nausea, Vomiting Genitourinary: Denies: dysuria, frequency, burning, pain, urgency Musculoskeletal: Reports: no symptoms Skin: Reports: no symptoms Neurological: Reports: No Symptoms Psychiatric: Reports: no symptoms - Patient Data Vitals - most recent: Last Vital Signs Temp 97.1 F 02/26/17 07:35 Pulse 89 02/26/17 07:35 Resp 20 02/26/17 07:35 BP 148/87 H 02/26/17 07:35 Pulse Ox 97 02/26/17 07:35 Weight - most recent: 240 lb I&O - last 24 hours: Intake & Output 02/25/17 02/26/17 02/26/17 19:59 03:59 11:59 Intake Total 4700 690 Output Total 100 200 Balance 4600 490 Med Orders - Current: Current Medications Hydrocodone Bitart/Acetaminophen ([place] 325-5 Mg) 1 - 2 tab PO Q4H PRN PRN Reason: Pain (moderate 4-6) Last Admin: 02/26/17 08:12 Dose: 2 tab Lactated Ringer's (Ringers, Lactated) 1,000 mls @ 150 mls/hr IV ASDIRECTED OCTAVIO Last Admin: 02/26/17 07:28 Dose: 150 mls/hr Cefoxitin Sodium 1 gm/ Premix 50 mls @ 100 mls/hr IV Q8H [facility] Stop: 02/26/17 14:29 Last Admin: 02/26/17 05:46 Dose: 100 mls/hr Morphine Sulfate (Morphine) 0 mg IVPUSH Q1H PRN PRN Reason: Pain (severe 7-10) Last Admin: 02/26/17 07:26 Dose: 2 mg Sodium Chloride (Saline Flush) 10 ml FLUSH ASDIRECTED PRN PRN Reason: Keep Vein Open Sodium Chloride (Saline Flush) 2.5 ml FLUSH ASDIRECTED PRN PRN Reason: Keep Vein Open Sodium Chloride (Saline Flush) 10 ml FLUSH ASDIRECTED PRN PRN Reason: Keep Vein Open Sodium Chloride (Saline Flush) 2.5 ml FLUSH ASDIRECTED PRN PRN Reason: Keep Vein Open Discontinued Medications Bupivacaine HCl (Marcaine 0.5%) Confirm Administered Dose 30 ml .ROUTE .STK-MED ONE Stop: 02/25/17 23:56 Cefazolin Sodium (Ancef) Confirm Administered Dose 1 gm .ROUTE .STK-MED ONE Stop: 02/25/17 23:56 Ephedrine Sulfate (Ephedrine Sulfate) Confirm Administered Dose 50 mg .ROUTE .STK-MED ONE Stop: 02/26/17 00:38 Fentanyl (Sublimaze) 50 mcg IVPUSH Q5M PRN PRN Reason: Pain (severe 7-10) Stop: 02/26/17 23:23 Fentanyl (Sublimaze) Confirm Administered Dose 250 mcg .ROUTE .STK-MED ONE Stop: 02/25/17 23:51 Hydromorphone HCl (Dilaudid) 1 mg IVPUSH ONETIME ONE Stop: 02/25/17 20:50 Last Admin: 02/25/17 21:05 Dose: 1 mg Hydromorphone HCl (Dilaudid) 1 mg IVPUSH ONETIME ONE Stop: 02/25/17 22:50 Last Admin: 02/25/17 23:14 Dose: 1 mg Hydromorphone HCl (Dilaudid) Confirm Administered Dose 2 mg .ROUTE .STK-MED ONE Stop: 02/26/17 00:44 Sodium Chloride (Normal Saline) 1,000 mls @ 999 mls/hr IV STAT ONE Stop: 02/25/17 21:49 Last Admin: 02/25/17 20:58 Dose: 999 mls/hr Sodium Chloride (Normal Saline) 1,000 mls @ 999 mls/hr IV STAT ONE Stop: 02/25/17 22:26 Last Admin: 02/25/17 21:45 Dose: 999 mls/hr Sodium Chloride (Normal Saline) 1,000 mls @ 150 mls/hr IV ASDIRECTED [facility] Last Admin: 02/25/17 23:05 Dose: 150 mls/hr Cefoxitin Sodium 2 gm/ Premix 50 mls @ 100 mls/hr IV ONETIME ONE Stop: 02/25/17 23:19 Last Admin: 02/25/17 23:07 Dose: 100 mls/hr Lactated Ringer's (Ringers, Lactated) 1,000 mls @ 150 mls/hr IV ASDIRECTED OCTAVIO Cefoxitin Sodium 1 gm/ Premix 50 mls @ 100 mls/hr IV Q8H [facility] Stop: 02/26/17 10:14 Last Admin: 02/26/17 03:10 Dose: Not Given Iopamidol (Isovue Multipack-370 (76%)) 100 ml IVPUSH ONETIME STA Stop: 02/25/17 22:30 Last Admin: 02/25/17 22:30 Dose: 100 ml Labetalol HCl (Normodyne) Confirm Administered Dose 25 mg .ROUTE .STK-MED ONE Stop: 02/26/17 00:24 Lidocaine (Xylocaine-Mpf 2%) Confirm Administered Dose 5 ml .ROUTE .STK-MED ONE Stop: 02/25/17 23:51 Midazolam HCl (Versed 1 Mg/Ml) 2 mg IVPUSH ONETIME ONE Stop: 02/25/17 23:32 Last Admin: 02/26/17 00:06 Dose: 2 mg Midazolam HCl (Versed 1 Mg/Ml) Confirm Administered Dose 2 mg .ROUTE .STK-MED ONE Stop: 02/25/17 23:51 Ondansetron HCl (Zofran) 4 mg IVPUSH ONETIME ONE Stop: 02/25/17 20:50 Last Admin: 02/25/17 21:00 Dose: 4 mg Ondansetron HCl (Zofran) Confirm Administered Dose 4 mg .ROUTE .STK-MED ONE Stop: 02/25/17 23:51 Pantoprazole Sodium (Protonix Iv) 80 mg IVPUSH .BOLUS ONE Stop: 02/25/17 20:50 Last Admin: 02/25/17 21:10 Dose: 80 mg Phenylephrine HCl (Phenylephrine In Ns 100 Mcg/Ml) Confirm Administered Dose 1 mg .ROUTE .STK-MED ONE Stop: 02/26/17 00:39 Propofol (Diprivan 20 Ml) Confirm Administered Dose 200 mg .ROUTE .STK-MED ONE Stop: 02/25/17 23:51 Succinylcholine Chloride (Succinylcholine In Ns Pf) Confirm Administered Dose 200 mg .ROUTE .STK-MED ONE Stop: 02/25/17 23:51 - Exam Wound/Incisions: dressing dry and intact General: alert, oriented, cooperative, mild distress HEENT: Pupils equal, Pupils reactive, EOMI. No: Scleral icterus Neck: supple Lungs: Clear to auscultation, Normal respiratory effort Cardiovascular: Regular Rate, Regular Rhythm, Tachycardia Abdomen: bowel sounds present, soft, no distension, tenderness. No: rigidity, rebound, guarding Extremities: no edema, normal pulses Skin: warm, dry, intact Neurological: no new focal deficit Psy/Mental Status: alert, normal affect, normal mood - Problem List & Annotations (1) Appendicitis SNOMED Code(s): 60332622 Code(s): K37 - UNSPECIFIED APPENDICITIS Status: Acute Current Visit: Yes Qualifiers: Appendicitis type: acute appendicitis Acute appendicitis type: with localized peritonitis Qualified Code(s): K35.3 - Acute appendicitis with localized peritonitis - Problem List Review Problem List Initiated/Reviewed/Updated: Yes - My Orders Last 24 Hours: Active Orders 24 hr Category Date Time Status Soft Diet [DIET] Diet 02/26/17 Lunch Active cefOXitin [Mefoxin in Dextrose,Iso-Osm 1 GM/50 ML] 1 gm Med 02/26/17 06:00 Active Premix Bag 1 bag IV Q8H Medication Orders Hydrocodone Bitart/Acetaminophen ([place] 325-5 Mg) 1 - 2 tab PO Q4H PRN PRN Reason: Pain (moderate 4-6) Last Admin: 02/26/17 08:12 Dose: 2 tab Admin: 02/26/17 03:21 Dose: 2 tab Lactated Ringer's (Ringers, Lactated) 1,000 mls @ 150 mls/hr IV ASDIRECTED OCTAVIO Last Admin: 02/26/17 07:28 Dose: 150 mls/hr Infusion: 02/26/17 07:28 Dose: 150 mls/hr Admin: 02/26/17 02:10 Dose: 150 mls/hr Cefoxitin Sodium 1 gm/ Premix 50 mls @ 100 mls/hr IV Q8H [facility] Stop: 02/26/17 14:29 Last Admin: 02/26/17 05:46 Dose: 100 mls/hr Morphine Sulfate (Morphine) 0 mg IVPUSH Q1H PRN PRN Reason: Pain (severe 7-10) Last Admin: 02/26/17 07:26 Dose: 2 mg Admin: 02/26/17 05:05 Dose: 2 mg Sodium Chloride (Saline Flush) 10 ml FLUSH ASDIRECTED PRN PRN Reason: Keep Vein Open Sodium Chloride (Saline Flush) 2.5 ml FLUSH ASDIRECTED PRN PRN Reason: Keep Vein Open Sodium Chloride (Saline Flush) 10 ml FLUSH ASDIRECTED PRN PRN Reason: Keep Vein Open Sodium Chloride (Saline Flush) 2.5 ml FLUSH ASDIRECTED PRN PRN Reason: Keep Vein Open - Assessment Assessment (Free Text/Narrative):: Patient is feeling much better. Pain controlled. Still c/o RLQ pain but much less intense. No shoulder pain. Appetite slowly returning. Overall, patient is improved. Wants to go home. - Plan Plan (Free Text/Narrative):: Discharge. [place] 5/325 1 po q6h prn pain. #20 May return to light duty on 03/04. Not to lift more than 25 lbs. for 6 weeks. Clinic visit 10 days.
--- NOTE | 2017-02-26 10:13 | PCM48HPAN ---
Post Anesthesia Note - EVALUATION WITHIN 48HRS OF ANESTHETIC Vital Signs in Normal Range: Yes Patient Participated in Evaluation: Yes Respiratory Function Stable: Yes Airway Patent: Yes Cardiovascular Function Stable: Yes Hydration Status Stable: Yes Pain Control Satisfactory: Yes Nausea and Vomiting Control Satisfactory: Yes Mental Status Recovered: Yes - COMMENTS/OBSERVATIONS Free Text/Narrative:: Patient was discharged early this morning without notice to us that he would be before we were available to see him for Post Anesthesia visit. Charting was reviewed and this young man was discharged in good condition.
--- NOTE | 2017-02-26 13:12 | CR ---
EXAM DATE: 02/26/17 PATIENT'S AGE: 26 Patient: LLOYD KULKARNI Facility: [place], [place] Site . Site : 1990 Study: XRay Abdomen [id number]/17/2017 9:45:04 PM Ordering Physician: Lynsey Shelton Final Report: INDICATION: SEVERE ABDOMINAL PAIN TECHNIQUE: Abdomen 5 view COMPARISON: None FINDINGS: Bowel: Nonobstructive bowel gas pattern. Soft tissues: 4 circular densities within the pelvis which were secondary to overlying clothing and not apparent on the repeat radiograph. Multiple punctate radiopaque densities within the left quadrant which appear to be overlying artifact rather than a true finding. No sign of soft tissue mass. No suspicious calcifications. Bones: Moderate degenerative changes of the left hip. IMPRESSION: Nonobstructive bowel gas pattern. 4 circular densities within the pelvis which were secondary to overlying clothing and not apparent on the repeat radiograph. Multiple punctate radiopaque densities within the left quadrant which appear to be overlying artifact rather than a true finding. Dictated by Andrea Borges MD @ 02/25/2017 10:23:27 PM Dictated by: Andrea Borges MD @ 02/25/2017 22:56:12 (Electronic Signature) Report Signed by Proxy. AMITA
--- NOTE | 2017-02-26 13:13 | CT ---
EXAM DATE: 02/26/17 PATIENT'S AGE: 26 Patient: LLOYD KULKARNI Facility: [place], [place] Site . Site : 1990 Study: CT Abdomen/Pelvis W CONT [id number]/17/2017 10:33:32 PM Ordering Physician: Lynsey Shelton Final Report: INDICATION: SEVERE ABDOMINAL PAIN MID ADBOMEN SINCE 1700HRS TONGIHT. TECHNIQUE: CT abdomen and pelvis without contrast. COMPARISON: None FINDINGS: Lower chest: Unremarkable. Liver: Diffuse fatty infiltration of the liver. Spleen: Unremarkable. Pancreas: Unremarkable. Gallbladder and bile ducts: Unremarkable. Kidneys: 9 mm renal cyst within the inferior pole of the left kidney. No kidney or ureteral stones and no hydronephrosis. Adrenal glands: Unremarkable. GI tract: Moderate large stool. Dilated fluid filled appendix measuring up to 14 mm circumferential wall enhancement/ thickening and periappendiceal stranding. Appendicolith near the base of the appendix. No evidence of perforation or abscess formation. Vascular structures: Unremarkable. Lymph nodes: Unremarkable. Miscellaneous: Unremarkable. No free air or significant free fluid. Pelvic Organs: Unremarkable. Bones: Moderate degenerative changes of the left hip joint. . IMPRESSION: Acute appendicitis with no evidence of perforation or abscess formation. Results called to Dr. Menon at 2250 hours on February 25, 2017. Dictated by Andrea Borges MD @ 02/25/2017 10:55:07 PM Dictated by: Andrea Borges MD @ 02/25/2017 22:55:25 (Electronic Signature) Report Signed by Proxy. [facility]
== END 2017-02-26 09:15 | disposition home or self-care (01) ==
LOC: MW.ED 20:32 → MW.SDS 23:00 → MW.MS 02-26 01:35
PROVIDERS: ADMIT Surgery; ATTEND Surgery
DX: K35.80 Unspecified acute appendicitis (principal); Z98.890 Other specified postprocedural states
CPT/HCPCS: 36415; 44970; 74020; 74177; 80053; 81001; 82150; 83605; 83690; 85025; 85610; 88304; 96361; 96365; 96375; 99285; A9270; C9113; G0378; J0690; J0694; J1170; J2250; J2270; J2405; J3010; J7040; J7120; Q9967; 00840; J2704

== ENCOUNTER 2017-03-04 16:53 | Emergency (ER) | payer MEDICAID ==
--- NOTE | 2017-03-04 17:21 | EDM.PDOC ---
ED HPI GENERAL MEDICAL PROBLEM - General Chief Complaint: Abdominal Pain Stated Complaint: ABDOMINAL PAIN Time Seen by Provider: 03/04/17 17:15 Source of Information: Reports: Patient History Limitations: Reports: No Limitations - History of Present Illness INITIAL COMMENTS - FREE TEXT/NARRATIVE: HISTORY AND PHYSICAL: [] 26-year-old male presenting with abdominal pain History of Present Illness: []Patient had appendectomy one week ago laparoscopic He was reaching to change a light bulb today now has pain to mid abdomen He is out of his pain medication from Dr. Anthony Farooq Review of Systems: As per history of present illness and below otherwise all systems reviewed and negative. Past medical history: As per history of present illness and as reviewed below otherwise noncontributory. Surgical history: As per history of present illness and as reviewed below otherwise noncontributory. Social history: No reported history of drug or alcohol abuse. Family history: As per history of present illness and as reviewed below otherwise noncontributory. Physical exam: Alert and oriented male answering questions in full sentences HEENT: Atraumatic, normocehpalic, pupils reactive, negative for conjunctival pallor or scleral icterus, mucous membranes moist, throat clear, neck supple, nontender, trachea midline. Lungs: Clear to auscultation, breath sounds equal bilaterally, chest non tender. Heart: S1S2, regular, negative for clicks, rubs, or JVD. Abdomen: Soft, nondistended, tender. No rebound no guarding, active bowel sounds Negative for masses or hepatossplenmegaly. Negative for costovertebral tenderness. Pelvis: Stable nontender. Genitourinary: Deferred. Rectal: Deferred Extremities: Atraumatic, negative for cords or calf pain. Neurovascular unremarkable. Neuro: Awake, alert, oriented. Cranial nerves II through XII unremarkable. Cerebellum unremarkable. Motor and sensory unremarkable throughout. Exam nonfocal. Diagnostics: [] Therapeutics: [] Impression: [Abdominal pain] Plan: [Prescription written for hydrocodone/APAP 5/325 mg one 3 times daily as needed for pain #[address] Farooq for follow-up care] Definitive disposition and diagnosis as appropriate pending reevaluation and review of above. Onset: Today, Sudden Duration: Hour(s): Location: Reports: Abdomen abdomen Pain Score (Numeric/FACES): 7 - Related Data Allergies Allergy/AdvReac Type Severity Reaction Status Date / Time No Known Allergies Allergy Verified 03/04/17 16:57 Home Meds: Home Meds . [No Known Home Meds] 02/25/17 [History] Past Medical History - Past Health History Medical/Surgical History: Denies Medical/Surgical History HEENT History: Reports: None Cardiovascular History: Reports: Hypertension Respiratory History: Reports: None Gastrointestinal History: Reports: Irritable Bowel Syndrome Genitourinary History: Reports: None Musculoskeletal History: Reports: None, Other (See Below) Neurological History: Reports: None Psychiatric History: Reports: Addiction Endocrine/Metabolic History: Reports: None Hematologic History: Reports: None Immunologic History: Reports: None Oncologic (Cancer) History: Reports: None Dermatologic History: Reports: None - Infectious Disease History Infectious Disease History: Reports: None - Past Surgical History Head Surgeries/Procedures: Reports: None Cardiovascular Surgical History: Reports: None GI Surgical History: Reports: Appendectomy Musculoskeletal Surgical History: Reports: Other (See Below) Other Musculoskeletal Surgeries/Procedures:: 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 Social & Family History - Family History Family Medical History: Noncontributory - Tobacco Use Smoking Status *Q: Current Every Day Smoker Years of Tobacco use: 10 Packs/Tins Daily: 1 Used Tobacco, but Quit: No Second Hand Smoke Exposure: Yes - Caffeine Use Caffeine Use: Reports: Coffee, Energy Drinks, Soda, Tea - Alcohol Use Days Per Week of Alcohol Use: 7 Number of Drinks Per Day: 12 Total Drinks Per Week: 84 - Recreational Drug Use Recreational Drug Use: No Drug Use in Last 12 Months: No Recreational Drug Type: Reports: Methamphetamine Recreational Drug Last Use: january 2016 ED ROS GENERAL - Review of Systems Review Of Systems: ROS reveals no pertinent complaints other than HPI. ED EXAM, GI/ABD - Physical Exam Exam: See Below Course - Vital Signs Last Recorded V/S: Last Vital Signs Temp 36.2 C 03/04/17 17:01 Pulse 97 03/04/17 17:01 Resp 18 03/04/17 17:01 BP 159/85 H 03/04/17 17:01 Pulse Ox 96 03/04/17 17:01 Departure - Departure Time of Disposition: 17:23 Disposition: Home, Self-Care 01 Condition: Good Clinical Impression: Abdominal pain Qualifiers: Abdominal location: periumbilical Qualified Code(s): R10.33 - Periumbilical pain - Discharge Information Instructions: Abdominal Pain, Adult, [id number], Pain Medicine Instructions, [id number] Forms: ED Department Discharge Additional Instructions: The following information is given to patients seen in the emergency department who are being discharged to home. This information is to outline your options for follow-up care. We provide all patients seen in our emergency department with a follow-up referral. The need for follow-up, as well as the timing and circumstances, are variable depending upon the specifics of your emergency department visit. If you don't have a primary care physician on staff, we will provide you with a referral. We always advise you to contact your personal physician following an emergency department visit to inform them of the circumstance of the visit and for follow-up with them and/or the need for any referrals to a consulting specialist. The emergency department will also refer you to a specialist when appropriate. This referral assures that you have the opportunity for followup care with a specialist. All of these measure are taken in an effort to provide you with optimal care, which includes your followup. Under all circumstances we always encourage you to contact your private physician who remains a resource for coordinating your care. When calling for followup care, please make the office aware that this follow-up is from your recent emergency room visit. If for any reason you are refused follow-up, please contact the [facility] emergency department at and asked to speak to the emergency department charge nurse. Follow-up with Dr. Anthony Farooq for post operative cares [facility] Specialty Care - General Surgery Professional Building [address] [place] [address], [address] [place] [address]
== END 2017-03-04 17:40 | disposition home or self-care (01) ==
LOC: MW.ED 16:53
CPT/HCPCS: 99282; 99283

== ENCOUNTER 2017-06-01 11:37 | Emergency (ER) | payer MEDICAID ==
[2017-06-01 11:52] VITALS: BP 151/89
--- NOTE | 2017-06-01 12:39 | EDM.PDOC ---
ED HPI GENERAL MEDICAL PROBLEM - General Chief Complaint: Lower Extremity Injury/Pain Stated Complaint: LEFT HIP PAIN Time Seen by Provider: 06/01/17 11:45 Source of Information: Reports: Patient History Limitations: Reports: No Limitations - History of Present Illness INITIAL COMMENTS - FREE TEXT/NARRATIVE: History of present illness: [26-year-old male presenting with complaints of pain in the left hip. Patient has a known history of avascular necrosis, which he feels is involving.] Review of systems: As per history of present illness and below otherwise all systems reviewed and negative. Past medical history: As per history of present illness and as reviewed below otherwise noncontributory. Surgical history: As per history of present illness and as reviewed below otherwise noncontributory. Social history: No reported history of drug or alcohol abuse. Family history: As per history of present illness and as reviewed below otherwise noncontributory. Physical exam: HEENT: Atraumatic, normocephalic, pupils reactive, negative for conjunctival pallor or scleral icterus, mucous membranes moist, throat clear, neck supple, nontender, trachea midline. Lungs: Clear to auscultation, breath sounds equal bilaterally, chest nontender. Heart: S1S2, regular, negative for clicks, rubs, or JVD. Abdomen: Soft, nondistended, nontender. Negative for masses or hepatosplenomegaly. Negative for costovertebral tenderness. Pelvis: Stable nontender. Genitourinary: Deferred. Rectal: Deferred. Extremities: Atraumatic, negative for cords or calf pain. Neurovascular unremarkable. Left hip painful with guarded gait, range of motion and pressure exacerbate the pain. Neuro: Awake, alert, oriented. Cranial nerves II through XII unremarkable. Cerebellum unremarkable. Motor and sensory unremarkable throughout. Exam nonfocal. Diagnostics: X-ray of left temporal Therapeutics: [] Impression: [Hip pain] Plan: [Follow-up with orthopedics] Definitive disposition and diagnosis as appropriate pending reevaluation and review of above. Onset: No: Today left hip Pain Score (Numeric/FACES): 10 - Related Data Allergies Allergy/AdvReac Type Severity Reaction Status Date / Time No Known Allergies Allergy Verified 03/04/17 16:57 Home Meds: Home Meds Ibuprofen 800 mg PO ASDIRECTED 06/01/17 [History] Past Medical History - Past Health History Medical/Surgical History: Denies Medical/Surgical History HEENT History: Reports: None Cardiovascular History: Reports: Hypertension Respiratory History: Reports: None Gastrointestinal History: Reports: Irritable Bowel Syndrome Genitourinary History: Reports: None Musculoskeletal History: Reports: Other (See Below) Other Musculoskeletal History: vascular necrosis Neurological History: Reports: None Psychiatric History: Reports: Addiction Endocrine/Metabolic History: Reports: None Hematologic History: Reports: None Immunologic History: Reports: None Oncologic (Cancer) History: Reports: None Dermatologic History: Reports: None - Infectious Disease History Infectious Disease History: Reports: None - Past Surgical History Head Surgeries/Procedures: Reports: None Cardiovascular Surgical History: Reports: None GI Surgical History: Reports: Appendectomy Other Musculoskeletal Surgeries/Procedures:: 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 Social & Family History - Family History Family Medical History: Noncontributory - Tobacco Use Smoking Status *Q: Current Every Day Smoker Years of Tobacco use: 6 Packs/Tins Daily: 1 Used Tobacco, but Quit: No Second Hand Smoke Exposure: Yes - Caffeine Use Caffeine Use: Reports: Coffee, Energy Drinks, Soda, Tea - Alcohol Use Days Per Week of Alcohol Use: 7 Number of Drinks Per Day: 12 Total Drinks Per Week: 84 - Recreational Drug Use Recreational Drug Use: No Drug Use in Last 12 Months: No Recreational Drug Type: Reports: Methamphetamine Recreational Drug Last Use: january 2016 Review of Systems - Review of Systems Review Of Systems: See Below (See history of present illness) ED EXAM, GENERAL - Physical Exam Exam: See Below (See history of present illness) Course - Vital Signs Last Recorded V/S: Last Vital Signs Temp 36.3 C 06/01/17 11:37 Pulse 86 06/01/17 11:37 Resp 18 06/01/17 11:37 BP 151/89 H 06/01/17 11:37 Pulse Ox 97 06/01/17 11:37 - Orders/Labs/Meds Orders: Active Orders 24 hr Category Date Time Status Hip Min 2V or 3V Lt [CR] Stat Exams 06/01/17 11:45 Ordered Departure - Departure Time of Disposition: 12:33 Disposition: Home, Self-Care 01 Condition: Good Clinical Impression: Hip pain - Discharge Information Instructions: Hip Pain Referrals: PCP,None [Primary Care Provider] - Additional Instructions: The following information is given to patients seen in the emergency department who are being discharged to home. This information is to outline your options for follow-up care. We provide all patients seen in our emergency department with a follow-up referral. The need for follow-up, as well as the timing and circumstances, are variable depending upon the specifics of your emergency department visit. If you don't have a primary care physician on staff, we will provide you with a referral. We always advise you to contact your personal physician following an emergency department visit to inform them of the circumstance of the visit and for follow-up with them and/or the need for any referrals to a consulting specialist. The emergency department will also refer you to a specialist when appropriate. This referral assures that you have the opportunity for follow-up care with a specialist. All of these measure are taken in an effort to provide you with optimal care, which includes your follow-up. Under all circumstances we always encourage you to contact your private physician who remains a resource for coordinating your care. When calling for follow-up care, please make the office aware that this follow-up is from your recent emergency room visit. If for any reason you are refused follow-up, please contact the [facility] Emergency Department at and asked to speak to the emergency department charge nurse. Return to ED as needed as discussed Follow-up with orthopedics [facility] Specialty Care - Orthopedic Clinic Professional Building [address] [place] [address], [address] [place] [address] [facility] Primary Care [facility] [place] [id number] - My Orders Last 24 Hours: My Active Orders 06/01/17 11:45 Hip Min 2V or 3V Lt [CR] Stat - Assessment/Plan Last 24 Hours: My Active Orders 06/01/17 11:45 Hip Min 2V or 3V Lt [CR] Stat
--- NOTE | 2017-06-02 19:17 | CR ---
EXAM DATE: 06/01/17 PATIENT'S AGE: 26 Patient: LLOYD KULKARNI Facility: [place], [place] Site . Site : 1990 Study: XRay Hip Left [id number] 12:13:23 PM Ordering Physician: Doctor Riddle Final Report: HISTORY: Left hip pain with history of avascular necrosis. Findings: Two views of the left hip are provided. There are no previous studies for comparison. There is a pattern of mixed lucency and sclerosis in the superior portion of the femoral head consistent with avascular necrosis. There is slight flattening and subsidence along the superior articular surface. No femoral neck or intertrochanteric fracture is noted. Mild osteoarthritic change is noted with small osteophytes and mild articular cartilage loss. Dictated by Eugene Pena MD @ Jun 01 2017 12:22PM (Electronic Signature) Report Signed by Proxy. AMITA
== END 2017-06-01 12:55 | disposition home or self-care (01) ==
LOC: MW.ED 11:37
DX: M25.552 Pain in left hip (principal); I10 Essential (primary) hypertension; F17.210 Nicotine dependence, cigarettes, uncomplicated
CPT/HCPCS: 73502-26-LT; 73502-LT; 99283

== ENCOUNTER 2017-12-26 14:10 | Emergency (ER) | payer OTHER ==
--- NOTE | 2017-12-26 14:29 | EDM.PDOC ---
ED HPI GENERAL MEDICAL PROBLEM - General Chief Complaint: Lower Extremity Injury/Pain Stated Complaint: LT HIP HURTS Time Seen by Provider: 12/26/17 14:17 Source of Information: Reports: Patient History Limitations: Reports: No Limitations - History of Present Illness INITIAL COMMENTS - FREE TEXT/NARRATIVE: HISTORY AND PHYSICAL: History of present illness: Patient is a 27-year-old male who presents to the emergency room with complaints of left hip pain area after falling today. He states approximately 2.5 years ago he had bone grafting completed with the intent of getting "total hip" replacement. He states his insurance ran out before he was able to have surgery. Since that time he has intermittently taken tramadol, Tylenol and ibuprofen for pain management. Today while at work he fell from standing height approximately one hour prior to his arrival. Pain is somewhat more than normal. He denies any numbness or tingling to the lower extremity. He is weightbearing without difficulty. Review of systems: As per history of present illness and below otherwise all systems reviewed and negative. Past medical history: As per history of present illness and as reviewed below otherwise noncontributory. Surgical history: As per history of present illness and as reviewed below otherwise noncontributory. Social history: No reported history of drug or alcohol abuse. Family history: As per history of present illness and as reviewed below otherwise noncontributory. Physical exam: General: Well-developed and well-nourished 27-year-old male. Alert and oriented. Nontoxic appearing and in no acute distress. HEENT: Atraumatic, normocephalic, pupils equal and reactive bilaterally, negative for conjunctival pallor or scleral icterus, mucous membranes moist, throat clear, neck supple, nontender, trachea midline. No drooling or trismus noted. No meningeal signs Lungs: Clear to auscultation, breath sounds equal bilaterally, chest nontender. Heart: S1S2, regular rate and rhythm without overt murmur Abdomen: Soft, nondistended, nontender. Negative for masses or hepatosplenomegaly. Negative for costovertebral tenderness. Pelvis: Stable nontender. Genitourinary: Deferred. Rectal: Deferred. Skin: Intact, warm, dry. No lesions or rashes noted. Extremities: Moves all extremities per self without difficulty or deficits. Strong pedal pulses bilaterally. Capillary refill less than 3 seconds. He is negative for cords or calf pain. Neurovascular unremarkable. Neuro: Awake, alert, oriented. Cranial nerves II through XII unremarkable. Cerebellum unremarkable. Motor and sensory unremarkable throughout. Exam nonfocal. Notes: X-ray shows no acute osseous abnormality. There is NIH advanced moderate degenerative changes noted within the left hip which likely represent sequela of previous osteonecrosis. Crutches have been offered to patient. He states he has not taken tramadol in several months. I will dispense 20 tablets, no refill of tramadol 50 mg for when necessary use. Medication education was reviewed and discussed. We discussed the limitations of x-ray unavailability through the emergency department. Informed him if he continues to have pain he will likely need to see orthopedics for further imaging such as MRI. He voices understanding and is agreeable to plan of care. He denies any further questions at this time. Diagnostics: Pelvis/left hip x-ray Therapeutics: [] Impression: Left hip injury Plan: 1. Rest, ice, elevate the affected extremity. 2. Tylenol and/or ibuprofen as needed for pain management. He states the tramadol for moderate to severe pain. One tab every 4-6 hours as needed. This medication may cause drowsiness a do not take it will driving her needing to be functioning outside of the house. 3. Follow-up with the orthopedic provider in the next 1-2 days as we discussed. Return to the ED as needed and as discussed. Definitive disposition and diagnosis as appropriate pending reevaluation and review of above. Onset: Today Duration: Hour(s):, Chronic Location: Reports: Lower Extremity, Left Left Hip Pain Score (Numeric/FACES): 6 - Related Data Allergies Allergy/AdvReac Type Severity Reaction Status Date / Time No Known Allergies Allergy Verified 12/26/17 14:18 Home Meds: Home Meds . [No Known Home Meds] 12/26/17 [History] Past Medical History - Past Health History Medical/Surgical History: Denies Medical/Surgical History HEENT History: Reports: None Cardiovascular History: Reports: Hypertension Respiratory History: Reports: None Gastrointestinal History: Reports: Irritable Bowel Syndrome Genitourinary History: Reports: None Musculoskeletal History: Reports: Other (See Below) Other Musculoskeletal History: vascular necrosis Neurological History: Reports: None Psychiatric History: Reports: Addiction Endocrine/Metabolic History: Reports: None Hematologic History: Reports: None Immunologic History: Reports: None Oncologic (Cancer) History: Reports: None Dermatologic History: Reports: None - Infectious Disease History Infectious Disease History: Reports: None - Past Surgical History Head Surgeries/Procedures: Reports: None Cardiovascular Surgical History: Reports: None GI Surgical History: Reports: Appendectomy Other Musculoskeletal Surgeries/Procedures:: 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 ED EXAM, GENERAL - Physical Exam Exam: See Below (See dictation) Course - Vital Signs Last Recorded V/S: Last Vital Signs Temp 98.3 F 12/26/17 15:59 Pulse 91 12/26/17 15:59 Resp 18 12/26/17 15:59 BP 128/67 12/26/17 15:59 Pulse Ox 97 12/26/17 15:59 Departure - Departure Time of Disposition: 16:07 Disposition: Home, Self-Care 01 Clinical Impression: Left hip pain - Discharge Information Referrals: PCP,None [Primary Care Provider] - Forms: ED Department Discharge Additional Instructions: The following information is given to patients seen in the emergency department who are being discharged to home. This information is to outline your options for follow-up care. We provide all patients seen in our emergency department with a follow-up referral. The need for follow-up, as well as the timing and circumstances, are variable depending upon the specifics of your emergency department visit. If you don't have a primary care physician on staff, we will provide you with a referral. We always advise you to contact your personal physician following an emergency department visit to inform them of the circumstance of the visit and for follow-up with them and/or the need for any referrals to a consulting specialist. The emergency department will also refer you to a specialist when appropriate. This referral assures that you have the opportunity for follow-up care with a specialist. All of these measure are taken in an effort to provide you with optimal care, which includes your follow-up. Under all circumstances we always encourage you to contact your private physician who remains a resource for coordinating your care. When calling for follow-up care, please make the office aware that this follow-up is from your recent emergency room visit. If for any reason you are refused follow-up, please contact the [facility] Emergency Department at and asked to speak to the emergency department charge nurse. [facility] Primary Care [address], [place] [address] [facility] Specialty Care - Orthopedic Clinic Professional Building [address] [place] [address], [address] [place] [address] 1. Rest, ice, elevate the affected extremity. 2. Tylenol and/or ibuprofen as needed for pain management. Please take the tramadol for moderate to severe pain. One tab every 4-6 hours as needed. This medication may cause drowsiness a do not take it will driving her needing to be functioning outside of the house. 3. Follow-up with the orthopedic provider in the next 1-2 days as we discussed. Return to the ED as needed and as discussed.
--- NOTE | 2017-12-26 16:01 | CR ---
EXAMINATION: Pelvis and left hip HISTORY: Fall COMPARISON: 06/01/2017 TECHNIQUE: AP and lateral views FINDINGS: There is no acute osseous abnormality, dislocation, or fracture. Minimal joint space narrow ing within the left hip. Subchondral cystic change noted within the left femoral head. The SI joints are symmetric. Bone mineralization is normal. IMPRESSION: 1. Age advanced moderate degenerative changes noted within the left hip, likely the sequela of previo us osteonecrosis. 2. No acute osseous abnormality demonstrated.
[2017-12-26 17:52] VITALS: BP 141/80
== END 2017-12-26 16:20 | disposition home or self-care (01) ==
LOC: MW.ED 14:10
DX: S79.912A Unspecified injury of left hip, initial encounter (principal); W19.XXXA Unspecified fall, initial encounter
CPT/HCPCS: 73502-26-LT; 73502-LT; 99282; 99283

== ENCOUNTER 2018-01-15 13:12 | Emergency (ER) | payer SELFPAY ==
[2018-01-15 13:52] VITALS: BP 161/83
[2018-01-15] MEDS ORDERED: Lidocaine 2% Viscous Solution 15 ML Cup PO ONE (14:49)
[2018-01-15] MEDS ORDERED: Benzocaine 20% Topical Spray UD MUCMEM ONE (14:49)
--- NOTE | 2018-01-15 14:49 | EDM.PDOC ---
ED HPI GENERAL MEDICAL PROBLEM - General Chief Complaint: ENT Problem Stated Complaint: left jaw pain Time Seen by Provider: 01/15/18 14:30 Source of Information: Reports: Patient History Limitations: Reports: No Limitations - History of Present Illness INITIAL COMMENTS - FREE TEXT/NARRATIVE: HISTORY AND PHYSICAL: History of present illness: [Comes to the emergency room complaining of left lower dental pain for the past 2 hours. Pain came on suddenly while he was at work. He took Tylenol 20 minutes after the onset of pain and has not had any significant improvement. Reports a long history of dental caries and broken teeth. Cannot remember when he has had a tooth this painful. The pain came on suddenly. He is having some radiation of the pain into his left teeth and into his left ear. No fever or chills. No chest pain shortness of breath or difficulty breathing. No abdominal pain. No nausea or vomiting. He does not have a local doctor or dentist. He has not taken any other medications for her symptoms besides Tylenol.] Review of systems: As per history of present illness and below otherwise all systems reviewed and negative. Past medical history: As per history of present illness and as reviewed below otherwise noncontributory. Surgical history: As per history of present illness and as reviewed below otherwise noncontributory. Social history: No reported history of drug or alcohol abuse. Family history: As per history of present illness and as reviewed below otherwise noncontributory. Physical exam: HEENT: Atraumatic, normocephalic. No facial abnormality or swelling is appreciated. He is tender with palpation over his left maxilla and mandibular area. Left TM is moderately erythematous to the anterior aspect. No effusions noted. Right TMs normal. Nares are patent and no discharge is noted. Oral mucous membranes are pink and moist. Teeth are in very poor repair. Tooth #1 and #2 are broken and decayed. Gum tissue is swollen and erythematous. Teeth and gums are tender with palpation. Left anterior cervical lymphadenopathy noted. Extremities: Atraumatic.Neurovascular unremarkable. Neuro: Awake, alert, oriented. Motor and sensory unremarkable throughout. Exam nonfocal. Therapeutics: Dental balls Impression: [Dental pain] Plan: [Rx written for amoxicillin 500 mg #30 sig 1 by mouth 3 times a day 0 refills. Dental balls sent home with patient. He is given a sheet to follow-up with a local dentist and establish with a local PCP. Strict return precautions are reviewed. Tylenol and ibuprofen as needed for discomfort. He is in agreement with today's plan. All questions are answered and concerns are addressed] Definitive disposition and diagnosis as appropriate pending reevaluation and review of above. left face Pain Score (Numeric/FACES): 10 - Related Data Allergies Allergy/AdvReac Type Severity Reaction Status Date / Time No Known Allergies Allergy Verified 01/15/18 13:49 Home Meds: Home Meds . [No Known Home Meds] 12/26/17 [History] Past Medical History - Past Health History Medical/Surgical History: Denies Medical/Surgical History HEENT History: Reports: None Cardiovascular History: Reports: Hypertension Respiratory History: Reports: None Gastrointestinal History: Reports: Irritable Bowel Syndrome Genitourinary History: Reports: None Musculoskeletal History: Reports: Other (See Below) Other Musculoskeletal History: vascular necrosis Neurological History: Reports: None Psychiatric History: Reports: Addiction Endocrine/Metabolic History: Reports: None Hematologic History: Reports: None Immunologic History: Reports: None Oncologic (Cancer) History: Reports: None Dermatologic History: Reports: None - Infectious Disease History Infectious Disease History: Reports: None - Past Surgical History Head Surgeries/Procedures: Reports: None Cardiovascular Surgical History: Reports: None GI Surgical History: Reports: Appendectomy Other Musculoskeletal Surgeries/Procedures:: 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 ED EXAM, ENT - Physical Exam Exam: See Below Course - Vital Signs Last Recorded V/S: Last Vital Signs Temp 97.9 F 01/15/18 13:49 Pulse 83 01/15/18 13:49 Resp 20 01/15/18 13:49 BP 161/83 H 01/15/18 13:49 Pulse Ox 96 01/15/18 13:49 - Orders/Labs/Meds Meds: Medications Discontinued Medications Generic Name Dose Route Start Last Admin Trade Name Freq PRN Reason Stop Dose Admin Benzocaine 2 each 01/15/18 14:49 Hurricaine One 20% MUCMEM 01/15/18 14:50 ONETIME ONE Lidocaine HCl 15 ml 01/15/18 14:49 Xylocaine 2% Viscous PO 01/15/18 14:50 ONETIME ONE Departure - Departure Time of Disposition: 14:50 Disposition: Home, Self-Care 01 Condition: Good Clinical Impression: Pain, dental - Discharge Information Instructions: Tooth Injuries Referrals: PCP,None [Primary Care Provider] - Forms: ED Department Discharge Additional Instructions: The following information is given to patients seen in the emergency department who are being discharged to home. This information is to outline your options for follow-up care. We provide all patients seen in our emergency department with a follow-up referral. The need for follow-up, as well as the timing and circumstances, are variable depending upon the specifics of your emergency department visit. If you don't have a primary care physician on staff, we will provide you with a referral. We always advise you to contact your personal physician following an emergency department visit to inform them of the circumstance of the visit and for follow-up with them and/or the need for any referrals to a consulting specialist. The emergency department will also refer you to a specialist when appropriate. This referral assures that you have the opportunity for follow-up care with a specialist. All of these measure are taken in an effort to provide you with optimal care, which includes your follow-up. Under all circumstances we always encourage you to contact your private physician who remains a resource for coordinating your care. When calling for follow-up care, please make the office aware that this follow-up is from your recent emergency room visit. If for any reason you are refused follow-up, please contact the [facility] emergency department at and asked to speak to the emergency department charge nurse. [facility] [address] [place] [id number] Establish care with a local primary care provider. Establish with a local dentist. Take antibiotics as prescribed, and use dental balls as instructed. You may alternate Tylenol with ibuprofen as needed for discomfort. Return to ER as needed as discussed.
== END 2018-01-15 15:08 | disposition home or self-care (01) ==
LOC: MW.ED 13:12
DX: K08.89 Other specified disorders of teeth and supporting structures (principal); F17.210 Nicotine dependence, cigarettes, uncomplicated
CPT/HCPCS: 99282; A9270

== ENCOUNTER 2018-01-18 16:53 | Emergency (ER) | payer SELFPAY ==
[2018-01-18 17:03] VITALS: BP 154/104
--- NOTE | 2018-01-18 17:08 | EDM.PDOC ---
ED HPI GENERAL MEDICAL PROBLEM - General Chief Complaint: ENT Problem Stated Complaint: ABSCESS TOOTH Time Seen by Provider: 01/18/18 16:53 Source of Information: Reports: Patient History Limitations: Reports: No Limitations - History of Present Illness INITIAL COMMENTS - FREE TEXT/NARRATIVE: HISTORY AND PHYSICAL: History of present illness: [The emergency room complaining of continued dental pain. He was evaluated by this provider on January 15 for a dental abscess and was prescribed amoxicillin 3 times a day, given dental balls and encouraged to follow-up with a local dentist. He is not feeling any improvement whatsoever. He denies any worsening of pain. Dental balls have not been helpful with the pain and he does not believe the antibiotic is working. He has not yet scheduled with a local dentist. He denies fever and chills. No chest pain shortness of breath or difficulty breathing. He has no other complaints or concerns at this time.] Review of systems: As per history of present illness and below otherwise all systems reviewed and negative. Past medical history: As per history of present illness and as reviewed below otherwise noncontributory. Surgical history: As per history of present illness and as reviewed below otherwise noncontributory. Social history: No reported history of drug or alcohol abuse. Family history: As per history of present illness and as reviewed below otherwise noncontributory. Physical exam: HEENT: Atraumatic, normocephalic. Tooth #1 and 2 broken off at the gumline. TMs are pearly cortes bilaterally. Nares are patent and without inflammation. Oral mucous membranes are pink and moist, throat is clear. Pelvis: Stable nontender. Genitourinary: Deferred. Rectal: Deferred. Extremities: Atraumatic, negative for cords or calf pain. Neurovascular unremarkable. Neuro: Awake, alert, oriented. Cranial nerves II through XII unremarkable. Cerebellum unremarkable. Motor and sensory unremarkable throughout. Exam nonfocal. Impression: [Dental abscess] Plan: [Discontinue amoxicillin. Rx written for Augmentin 875 mg twice a day 10 days 0 refills. Continue dental balls, alternate Tylenol with ibuprofen and establish with a local dentist. Strict return precautions are reviewed. He is in agreement with today's plan.] Definitive disposition and diagnosis as appropriate pending reevaluation and review of above. Left Ear Pain Score (Numeric/FACES): 8 - Related Data Allergies Allergy/AdvReac Type Severity Reaction Status Date / Time No Known Allergies Allergy Verified 01/15/18 13:49 Home Meds: Home Meds . [No Known Home Meds] 12/26/17 [History] Past Medical History - Past Health History Medical/Surgical History: Denies Medical/Surgical History HEENT History: Reports: None Cardiovascular History: Reports: Hypertension Respiratory History: Reports: None Gastrointestinal History: Reports: Irritable Bowel Syndrome Genitourinary History: Reports: None Musculoskeletal History: Reports: Other (See Below) Other Musculoskeletal History: vascular necrosis Neurological History: Reports: None Psychiatric History: Reports: Addiction Endocrine/Metabolic History: Reports: None Hematologic History: Reports: None Immunologic History: Reports: None Oncologic (Cancer) History: Reports: None Dermatologic History: Reports: None - Infectious Disease History Infectious Disease History: Reports: None - Past Surgical History Head Surgeries/Procedures: Reports: None Cardiovascular Surgical History: Reports: None GI Surgical History: Reports: Appendectomy Other Musculoskeletal Surgeries/Procedures:: 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 ED EXAM, ENT - Physical Exam Exam: See Below Course - Vital Signs Last Recorded V/S: Last Vital Signs Temp 97.5 F 01/18/18 17:00 Pulse 99 01/18/18 17:22 Resp 18 01/18/18 17:22 BP 154/104 H 01/18/18 17:22 Pulse Ox 95 01/18/18 17:22 Departure - Departure Time of Disposition: 17:06 Disposition: Home, Self-Care 01 Condition: Good Clinical Impression: Dental abscess - Discharge Information Instructions: Dental Abscess, [id number] Referrals: PCP,None [Primary Care Provider] - Forms: ED Department Discharge Additional Instructions: The following information is given to patients seen in the emergency department who are being discharged to home. This information is to outline your options for follow-up care. We provide all patients seen in our emergency department with a follow-up referral. The need for follow-up, as well as the timing and circumstances, are variable depending upon the specifics of your emergency department visit. If you don't have a primary care physician on staff, we will provide you with a referral. We always advise you to contact your personal physician following an emergency department visit to inform them of the circumstance of the visit and for follow-up with them and/or the need for any referrals to a consulting specialist. The emergency department will also refer you to a specialist when appropriate. This referral assures that you have the opportunity for follow-up care with a specialist. All of these measure are taken in an effort to provide you with optimal care, which includes your follow-up. Under all circumstances we always encourage you to contact your private physician who remains a resource for coordinating your care. When calling for follow-up care, please make the office aware that this follow-up is from your recent emergency room visit. If for any reason you are refused follow-up, please contact the [facility] emergency department at and asked to speak to the emergency department charge nurse. [facility] [address] [place] [id number] Tablets with a local primary care provider. You're being given a list of local dentists. Call to establish with one. Discontinue previous antibiotics and start the Augmentin. Return to ER as needed as discussed.
== END 2018-01-18 17:16 | disposition home or self-care (01) ==
LOC: MW.ED 16:53
DX: K04.7 Periapical abscess without sinus (principal); K03.81 Cracked tooth; I10 Essential (primary) hypertension; F17.210 Nicotine dependence, cigarettes, uncomplicated
CPT/HCPCS: 99282

== ENCOUNTER 2018-03-21 11:43 | Emergency (ER) | payer SELFPAY ==
[2018-03-21] MEDS ORDERED: Sodium Chloride 0.9% 1,000 ML IV ONE (12:10)
[2018-03-21] MEDS ORDERED: Ondansetron 4 MG/2 ML SDV IVPUSH ONE (12:10)
[2018-03-21] MEDS ORDERED: Meclizine 25 MG Tab PO ONE (12:10)
--- NOTE | 2018-03-21 12:28 | EDM.PDOC ---
ED HPI GENERAL MEDICAL PROBLEM - General Chief Complaint: General Stated Complaint: DIZZY Time Seen by Provider: 03/21/18 11:45 Source of Information: Reports: Patient History Limitations: Reports: No Limitations - History of Present Illness INITIAL COMMENTS - FREE TEXT/NARRATIVE: HISTORY AND PHYSICAL: History of present illness: Patient is a 27-year-old male who presents to the emergency room today with complaints of dizziness and nausea after standing for more than a few minutes at a time. He states that the dizziness becomes so severe that he becomes nauseated and has to sit down. Upon sitting still and resting the dizziness and nausea resolves he denies any recent head injury, trauma or falls. Denies any light or noise sensitivity. Denies any visual changes, syncope, chest pain or shortness of breath. Denies any GI or symptoms. He has been eating and drinking appropriately, no concerns of dehydration. Review of systems: As per history of present illness and below otherwise all systems reviewed and negative. Past medical history: As per history of present illness and as reviewed below otherwise noncontributory. Surgical history: As per history of present illness and as reviewed below otherwise noncontributory. Social history: No reported history of drug or alcohol abuse. Family history: As per history of present illness and as reviewed below otherwise noncontributory. Physical exam: General: Well-developed and well-nourished 27-year-old male. Alert and oriented. Nontoxic appearing and in no acute distress. HEENT: Atraumatic, normocephalic, pupils equal and reactive bilaterally, negative for conjunctival pallor or scleral icterus, mucous membranes moist, throat clear, TMs normal bilaterally, neck supple, nontender, trachea midline. No drooling or trismus noted. No meningeal signs Lungs: Clear to auscultation, breath sounds equal bilaterally, chest nontender. Heart: S1S2, regular rate and rhythm without overt murmur Abdomen: Soft, nondistended, nontender. Negative for masses or hepatosplenomegaly. Negative for costovertebral tenderness. Pelvis: Stable nontender. Genitourinary: Deferred. Rectal: Deferred. Skin: Intact, warm, dry. No lesions or rashes noted. Extremities: Atraumatic, negative for cords or calf pain. Neurovascular unremarkable. Neuro: Awake, alert, oriented. Cranial nerves II through XII unremarkable. Cerebellum unremarkable. Motor and sensory unremarkable throughout. Exam nonfocal. Notes: All lab work is within normal limits. Some information was shared with the patient. Limited amount of Valium has been prescribed for the dizziness. Medication education was completed. Patient voices understanding and is agreeable to plan of care. Denies any further questions or concerns at this time. Diagnostics: CBC, CMP, head CT, orthostatic vital signs, EKG Therapeutics: IV fluid, Zofran, meclizine po Prescription: NOne Impression: Dizziness Plan: 1. Labs and CT were normal. Please make sure you are drinking plenty of fluids and eating small frequent meals. 2. Valium has been prescribed to help with the dizziness, this medication can cause sedation - so take as directed and do no drive or work while taking this medication. 3. Please follow up with ENT specialist in the next few days. Return to the ED as needed and as discussed. Definitive disposition and diagnosis as appropriate pending reevaluation and review of above. Onset: Today - Related Data Allergies Allergy/AdvReac Type Severity Reaction Status Date / Time No Known Allergies Allergy Verified 03/21/18 12:13 Home Meds: Home Meds . [No Known Home Meds] 12/26/17 [History] Past Medical History - Past Health History Medical/Surgical History: Denies Medical/Surgical History HEENT History: Reports: None Cardiovascular History: Reports: Hypertension Respiratory History: Reports: None Gastrointestinal History: Reports: Irritable Bowel Syndrome Genitourinary History: Reports: None Musculoskeletal History: Reports: Other (See Below) Other Musculoskeletal History: vascular necrosis Neurological History: Reports: None Psychiatric History: Reports: Addiction Endocrine/Metabolic History: Reports: None Hematologic History: Reports: None Immunologic History: Reports: None Oncologic (Cancer) History: Reports: None Dermatologic History: Reports: None - Infectious Disease History Infectious Disease History: Reports: None - Past Surgical History Head Surgeries/Procedures: Reports: None Cardiovascular Surgical History: Reports: None GI Surgical History: Reports: Appendectomy Other Musculoskeletal Surgeries/Procedures:: 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 ED EXAM, GENERAL - Physical Exam Exam: See Below (See dictation) Course - Vital Signs Last Recorded V/S: Last Vital Signs Temp 97.0 F 03/21/18 12:11 Pulse 77 03/21/18 13:37 Resp 18 03/21/18 12:11 BP 131/79 03/21/18 13:37 Pulse Ox 99 03/21/18 13:37 Orthostatic Blood Pressure [ 133/79 Standing] Orthostatic Blood Pressure [ 139/79 Supine] - Orders/Labs/Meds Labs: Laboratory Tests 03/21/18 03/21/18 Range/Units 12:30 12:30 WBC 7.55 (4.0-11.0) K/uL RBC 5.09 (4.50-5.90) M/uL Hgb 14.8 (13.0-17.0) g/dL Hct 43.5 (38.0-50.0) % MCV 85.5 (80.0-98.0) fL MCH 29.1 (27.0-32.0) pg MCHC 34.0 (31.0-37.0) g/dL RDW Std Deviation 37.5 (28.0-62.0) fl RDW Coeff of Austyn 12 (11.0-15.0) % Plt Count 157 (150-400) K/uL MPV 10.30 (7.40-12.00) fL Neut % (Auto) 69.8 (48.0-80.0) % Lymph % (Auto) 20.9 (16.0-40.0) % Hemphill % (Auto) 7.8 (0.0-15.0) % Eos % (Auto) 1.2 (0.0-7.0) % Baso % (Auto) 0.3 (0.0-1.5) % Neut # (Auto) 5.3 (1.4-5.7) K/uL Lymph # (Auto) 1.6 (0.6-2.4) K/uL Hemphill # (Auto) 0.6 (0.0-0.8) K/uL Eos # (Auto) 0.1 (0.0-0.7) K/uL Baso # (Auto) 0.0 (0.0-0.1) K/uL Nucleated RBC % 0.0 /100WBC Nucleated RBCs # 0 K/uL Sodium 140 (136-148) mmol/L Potassium 4.2 (3.5-5.1) mmol/L Chloride 105 (98-107) mmol/L Carbon Dioxide 28.9 (21.0-32.0) mmol/L BUN 8 (7.0-18.0) mg/dL Creatinine 0.8 (0.8-1.3) mg/dL Est Cr Clr Drug Dosing 150.89 mL/min Estimated GFR (MDRD) > 60.0 ml/min Glucose 100 (74-106) mg/dL Calcium 8.8 (8.5-10.1) mg/dL Total Bilirubin 1.0 (0.2-1.0) mg/dL AST 29 (15-37) IU/L ALT 37 (14-63) IU/L Alkaline Phosphatase 57 (46-116) U/L Total Protein 7.5 (6.4-8.2) g/dL Albumin 3.8 (3.4-5.0) g/dL Globulin 3.7 H (2.0-3.5) g/dL Albumin/Globulin Ratio 1.0 L (1.3-2.8) Meds: Medications Discontinued Medications Generic Name Dose Route Start Last Admin Trade Name Freq PRN Reason Stop Dose Admin Sodium Chloride 1,000 mls @ 999 mls/hr 03/21/18 12:10 03/21/18 12:37 Normal Saline IV 03/21/18 13:10 999 mls/hr STAT ONE Administration Meclizine HCl 25 mg 03/21/18 12:10 03/21/18 12:36 Antivert PO 03/21/18 12:11 25 mg ONETIME ONE Administration Ondansetron HCl 4 mg 03/21/18 12:10 03/21/18 12:36 Zofran IVPUSH 03/21/18 12:11 4 mg ONETIME ONE Administration Departure - Departure Time of Disposition: 14:00 Disposition: Home, Self-Care 01 Clinical Impression: Dizziness - Discharge Information Instructions: Dizziness, [id number] Referrals: PCP,None [Primary Care Provider] - Forms: ED Department Discharge Additional Instructions: The following information is given to patients seen in the emergency department who are being discharged to home. This information is to outline your options for follow-up care. We provide all patients seen in our emergency department with a follow-up referral. The need for follow-up, as well as the timing and circumstances, are variable depending upon the specifics of your emergency department visit. If you don't have a primary care physician on staff, we will provide you with a referral. We always advise you to contact your personal physician following an emergency department visit to inform them of the circumstance of the visit and for follow-up with them and/or the need for any referrals to a consulting specialist. The emergency department will also refer you to a specialist when appropriate. This referral assures that you have the opportunity for follow-up care with a specialist. All of these measure are taken in an effort to provide you with optimal care, which includes your follow-up. Under all circumstances we always encourage you to contact your private physician who remains a resource for coordinating your care. When calling for follow-up care, please make the office aware that this follow-up is from your recent emergency room visit. If for any reason you are refused follow-up, please contact the [facility] Emergency Department at and asked to speak to the emergency department charge nurse. [facility] [address] [place] [id number] [facility] - ENT [address] [place] [phone] [address] and [address] were normal. Please make sure you are drinking plenty of fluids and eating small frequent meals. 2. Valium has been prescribed to help with the dizziness, this medication can cause sedation - so take as directed and do no drive or work while taking this medication. 3. Please follow up with ENT specialist in the next few days. Return to the ED as needed and as discussed.
[2018-03-21 13:13] LABS: CHLORIDE,CL 105 mmol/L (98-107); SODIUM,NA 140 mmol/L (136-148)
[2018-03-21 13:38] VITALS: BP 131/79
--- NOTE | 2018-03-21 13:57 | CT ---
EXAMINATION: Non contrast CT head. Coronal and sagittal reformats. HISTORY: Pain FINDINGS: No evidence of intra or extra axial hemorrhage, mass, midline shift, hydrocephalus or edema. No hypoattenuation changes in the major vascular territories to suggest acute infarct. No abnormal intracranial calcifications are detected. No evidence of substantial vascular calcificat ions. Paranasal sinuses and mastoid air cells are well aerated without substantial findings. The orbits an d globes are symmetric. Pituitary fossa appears unremarkable. Calvarium is intact. No evidence of skull fracture. IMPRESSION: No acute intracranial findings.
== END 2018-03-21 14:33 | disposition home or self-care (01) ==
LOC: MW.ED 11:43
DX: R42 Dizziness and giddiness (principal); F17.210 Nicotine dependence, cigarettes, uncomplicated; I10 Essential (primary) hypertension
CPT/HCPCS: 36415; 70450; 80053; 85025; 93005; 96361; 96374; 99284; A9270; J2405; J7040